=== PATIENT | female | born 1990 | race Two or more races ===

== ENCOUNTER 2022-12-26 20:39 | Emergency (ER) | payer OTHER ==
--- NOTE | 2022-12-26 21:04 | ED Physician Documentation ---
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 She just moved here and developed a lump on her right breast yesterday with moderate pain. No fevers.) PD PAST MEDICAL HISTORY - Present Medications Home Medications: Ambulatory Orders Medication Instructions Recorded Confirmed Doxycycline [Vibramycin] 100 mg PO BID #30 tablet 12/26/22 predniSONE [Deltasone] 20 mg PO [id number] #21 tab 12/26/22 - Allergies Allergies/Adverse Reactions: Allergies Allergy/AdvReac Type Severity Reaction Status Date / Time nitrofurantoin Allergy Itching Verified 12/26/22 20:52 [From Macrobid] PD ED PE NORMAL - Vitals Vital signs reviewed: Yes - General General: Alert and oriented X 3, No acute distress - Derm Derm: Other (Exam done with Joanne MeilleurMobile tech present and chaperoning. There is significant scarring laterally from prior I&D's. 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 Preliminary report of the teleradiologist, there are 2 very small abscesses, one under her prior I&D and another at this current symptomatic area. Case discussed by phone with our on-call surgeon, Dr. Bruno who recommends needle aspiration and antibiotics. This was done and the patient tolerated very well. Departure - Departure Disposition: 01 Home, Self Care Clinical Impression: Breast abscess Condition: Good Record reviewed to determine appropriate education?: Yes Instructions: ED Abscess IandD Prescriptions: predniSONE [Deltasone] 20 mg PO [id number] #21 tab Doxycycline [Vibramycin] 100 mg PO BID #30 tablet Comments: Stay out of the sun while on antibiotics. Follow-up with your PCM as scheduled. Return for new or worsening symptoms. We are performing a wound culture, the results should be done in 48-72 hours. If antibiotic change is necessary we will call you. Return if worse in the meantime, especially if you develop increased pain, fevers, cannot keep down the medication. Otherwise follow-up with your physician in approximately 2-3 days.
[2022-12-26] MEDS ORDERED: ACETAMINOPHEN 500 MG TABLET PO STA (21:27)
[2022-12-26] MEDS ORDERED: BUFFERED LIDOCAINE 10 ML SYRINGE SUBQ STA (22:14)
[2022-12-26] MEDS ORDERED: predniSONE 20 MG TABLET PO STA (22:19)
[2022-12-26] MEDS ORDERED: DOXYCYCLINE 100 MG TABLET PO STA (22:19)
[2022-12-26 22:41] VITALS: BP 120/72
--- NOTE | 2022-12-26 23:36 | Ultrasound Report ---
PROCEDURE: Breast RT Limited INDICATIONS: breast pain, ? abscess TECHNIQUE: Real-time focused sonographic evaluation of the right breast with image documentation. COMPARISON: None. FINDINGS: Ultrasound evaluation in the subareolar area of clinical concern demonstrates an oval circumscribed h ypoechoic collection measuring 1.5 x 1 1 x 0.9 cm with posterior acoustic enhancement. There are hete rogeneous internal echoes as well as eccentric solid components. No internal vascularity on color Dop pler interrogation. In addition, at the 9:00 position in the area of clinical concern, there is an oval predominantly cir cumscribed and hypoechoic collection measuring 1.2 x 0.9 x 1.1 cm with heterogeneous internal echoes including solid-appearing components. No internal vascularity and color Doppler interrogation. There is posterior acoustic enhancement. IMPRESSION: 1. Complex cystic mass or fluid collection with heterogeneous internal solid appearing components dem onstrated in the subareolar region. The differential includes an abscess, complex cyst, or malignancy . Recommend further evaluation with diagnostic mammogram. 2. A second complex cystic mass or fluid collection is also demonstrated at the 9:00 position with a similar differential. Further evaluation is also recommended with diagnostic mammogram. BI-RADS 0: Additional imaging recommended. Reviewed by: Morris Urena MD on 12/26/2022 11:49 PM PDT Approved by: Morris Urena MD on 12/26/2022 11:49 PM PDT Station ID: [id number]
== END 2022-12-26 22:40 | disposition home or self-care (01) ==
LOC: ED 20:39
DX: N61.1 Abscess of the breast and nipple (principal)
CPT/HCPCS: 10060; 76642; 99283; 99284; A9270; J7512

== ENCOUNTER 2023-06-11 12:08 | Emergency (ER) | payer OTHER ==
--- NOTE | 2023-06-11 13:04 | ED Physician Documentation ---
History of Present Illness - Stated complaint Stated Complaint: MIGRAINE,NAUSEA,VERTIGO - Chief complaint Chief Complaint: Neuro - Additonal information Additional information: 32-year-old female presents emergency department for evaluation of headache that began 2 days ago on Saturday. Reports that she was having sex and about to have an orgasm when the sudden pain began on the posterior head and neck and radiated forward. She had some nausea but no vomiting. She does have a history of migraines but this feels entirely different. She took Excedrin without relief of pain. She does take Aimovig injections monthly. Historically states that she has had an MRI that was normal. Review of Systems Constitutional: denies: Fever Eyes: reports: Reviewed and negative Ears: reports: Reviewed and negative Cardiac: reports: Reviewed and negative Respiratory: reports: Reviewed and negative Skin: reports: Reviewed and negative Musculoskeletal: reports: Neck pain Neurologic: reports: Headache. 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: LEEP (Cervical surgery), Other - Present Medications Home Medications: Ambulatory Orders Medication Instructions Recorded Confirmed Levothyroxine Sodium [Unithroid] 75 mcg ORAL DAILY 06/11/23 06/11/23 Liothyronine [Cytomel] 5 mcg PO QDAC 06/11/23 06/11/23 Pnv No.95/Ferrous Fum/Folic AC 1 each PO DAILY 06/11/23 06/11/23 [ Tablet] modafiniL [Modafinil] 100 mg PO DAILY 06/11/23 06/11/23 - Allergies Allergies/Adverse Reactions: Allergies Allergy/AdvReac Type Severity Reaction Status Date / Time nitrofurantoin Allergy Itching Verified 06/11/23 12:21 [From Macrobid] - Social History Does the pt smoke?: No Smoking Status: Never smoker Does the pt drink ETOH?: No Does the pt have substance abuse?: No - Immunizations Immunizations are current?: Yes PD ED PE NORMAL - General General: Alert and oriented X 3, No acute distress - HEENT HEENT: Atraumatic, Moist mucous membranes - Neck Neck: Supple, no meningeal sign - Cardiac Cardiac: RRR, No murmur - Abdomen Abdomen: Normal bowel sounds, Soft - Derm Derm: Warm and dry - Extremities Extremities: No deformity - Neuro Neuro: Alert and oriented X 3, supervisor scrap preparation 2-12 intact, No motor deficit, No sensory deficit, Normal speech, Other (normal finger nose, normal gait) Eye Opening: Spontaneous Motor: Obeys Commands Verbal: Oriented GCS Score: 15 Results - Vitals Vitals: Vital Signs - 24 hr 06/11/23 06/11/23 12:16 13:15 Temperature 37.5 C Heart Rate 75 117 H Respiratory 15 18 Rate Blood Pressure 124/71 113/92 H O2 Saturation 99 98 Oxygen O2 Source Room air - Labs Labs: Laboratory Tests 06/11/23 06/11/23 13:05 13:05 WBC 7.8 RBC 4.76 Hgb 13.4 Hct 42.4 MCV 89.1 MCH 28.2 MCHC 31.6 L RDW 12.6 Plt Count 256 MPV 10.0 Neut # (Auto) 5.2 Lymph # (Auto) 2.1 Nolan # (Auto) 0.4 Eos # (Auto) 0.1 Baso # (Auto) 0.0 Absolute Nucleated RBC 0.00 Nucleated RBC % 0.0 Sodium 135 Potassium 3.7 Chloride 101 Carbon Dioxide 27 Anion Gap 7.0 BUN 12 Creatinine 0.6 Estimated GFR (MDRD) 117 Glucose 107 H Calcium 9.1 Total Bilirubin 0.2 AST 16 ALT 17 Alkaline Phosphatase 108 Total Protein 7.4 Albumin 4.4 Globulin 3.0 Albumin/Globulin Ratio 1.5 Lipase 34 Serum HCG, Qual NEGATIVE - Rads (name of study) angio head/neck CT Relevant Findings:: Final report received (No there is a hemodynamically significant stenosis, vascular occlusion or aneurysmal dilation within the anterior posterior circulation, or neck vasculature) PD Medical Decision Making - ED course Complexity details: reviewed results, re-evaluated patient, d/w patient ED course: 32-year-old female presents emergency department for evaluation of cute onset headache that was suddenly severe and began at the point of orgasm during sexual activity about 48 hours ago. Began in her posterior neck and radiated towards the occiput. She does have a history of migraines but this feels entirely different. She takes Aimovig each month. However Excedrin and Tylenol at home did not resolve the headache. She presents well-appearing though mildly photophobic. Normal neurological and cerebellar exam. Her vital signs were without acute worrisome abnormalities. Given the history I was concerned for the possibility of a subarachnoid hemorrhage. Other etiologies include simple atypical migraine versus neck strain. Low suspicion for mass, tumor I did administer the patient Compazine and Benadryl as well as fluids here in the ER and on reevaluation the headache is better though not resolved. Ultimately CT angiography of the head and neck was completed which showed no findings of aneurysmal dilation dissection or bleeding within the vasculature of the neck, anterior or posterior circulation. I discussed these findings with the patient at this time she is comfortable going home without any obvious acute life-threatening issues found. She is scheduled to follow-up with her neurologist next week. The usual emergent return precautions were otherwise discussed Departure - Departure Disposition: 01 Home, Self Care Clinical Impression: Headache Qualifiers: Headache type: unspecified Headache chronicity pattern: acute headache Intractability: not intractable Qualified Code(s): R51.9 - Headache, unspecified Condition: Stable Record reviewed to determine appropriate education?: Yes Comments: You were seen today in the emergency department because 2 days ago, when you were sexually active and were about to have an orgasm you developed a sudden severe posterior head and neck pain that has not gone away. You do have a history of migraines but this felt entirely different. your labs today in the emergency department were normal. We did do CT angiography of your head and neck which showed no findings of subarachnoid hemorrhage, aneurysm, dissection or other worrisome abnormality within your brain or blood vessels. I would recommend that you try Tylenol and ibuprofen at home. Fluids and rest should make you feel better over the next several days. Continue follow-up with your neurologist next week as scheduled. Return to the ER if you develop any fevers, have sudden severe or different symptoms, vision changes, uncontrolled vomiting, slurred speech, facial droop, sudden weakness in your arms or legs. Forms: PCP List
[2023-06-11 13:10] LABS: BASOPHILS % (AUTO) 0.5 %; EOSINOPHILS # (AUTO) 0.1 10^3/uL (0.0-0.7); EOSINOPHILS % (AUTO) 1.4 %; HCT - HEMATOCRIT 42.4 % (37.0-47.0); HGB - HEMOGLOBIN 13.4 g/dL (12.0-16.0); LYMPHOCYTES # (AUTO) 2.1 10^3/uL (1.5-3.5); LYMPHOCYTES % (AUTO) 26.6 %; MEAN CORPUSCULAR HEMOGLOBIN 28.2 pg (27.0-31.0); MEAN CORPUSCULAR HGB CONC 31.6 g/dL (32.0-36.0); MEAN CORPUSCULAR VOLUME 89.1 fL (81.0-99.0); MONOCYTES # (AUTO) 0.4 10^3/uL (0.0-1.0); MONOCYTES % (AUTO) 4.5 %; NEUTROPHILS # (AUTO) 5.2 10^3/uL (1.5-6.6); NEUTROPHILS % (AUTO) 66.9 %; PLT - PLATELET COUNT 256 10^3/uL (130-450); RED BLOOD COUNT 4.76 10^6/uL (4.20-5.40); RED CELL DISTRIBUTION WIDTH 12.6 % (12.0-15.0); WHITE BLOOD COUNT 7.8 x10^3/uL (4.8-10.8)
[2023-06-11] MEDS: SODIUM CHLORIDE 0.9% 1,000 ML IV STA (13:12)
[2023-06-11] MEDS: diphenhydrAMINE INJ 50 MG/ML VIAL IVP STA (13:12)
[2023-06-11] MEDS: PROCHLORPERAZINE 10 MG/2 ML VIAL IVP STA (13:12)
[2023-06-11 13:25] LABS: ALBUMIN 4.4 g/dL (3.2-5.5); ALBUMIN/GLOBULIN RATIO 1.5 (1.0-2.2); ALKALINE PHOSPHATASE 108 IU/L (42-121); ALT ALANINE AMINOTRANSFERASE 17 IU/L (10-60); AST ASPARTATE AMINOTRANSFERASE 16 IU/L (10-42); BILIRUBIN,TOTAL 0.2 mg/dL (0.2-1.0); BUN - BLOOD UREA NITROGEN 12 mg/dL (6-20); CALCIUM 9.1 mg/dL (8.5-10.3); CARBON DIOXIDE - CO2 27 mmol/L (21-32); CHLORIDE 101 mmol/L (101-111); CREATININE 0.6 mg/dL (0.6-1.3); GFR - MDRD 117 (>89); GLUCOSE 107 mg/dL (74-104); LIPASE 34 U/L (11-82); POTASSIUM 3.7 mmol/L (3.5-4.5); SODIUM 135 mmol/L (135-145); TOTAL PROTEIN 7.4 g/dL (6.4-8.9)
[2023-06-11 13:31] LABS: HCG,QUALITATIVE BLOOD NEGATIVE
[2023-06-11] MEDS: iohexoL-300 100 ML VIAL IVP ONE (13:59)
--- NOTE | 2023-06-11 14:40 | CT Report ---
PROCEDURE: CT Angio Head/Neck INDICATIONS: sudden onset headache with orgasm 2 days ago TECHNIQUE: After the administration of intravenous contrast, 1 mm thick sections acquired from the aortic arch t hrough the [place] of [place]. 3-dimensional ctuhmhx-ahrnocckz-fuwiizeets (MIP) and/or volume renderin g reformats were acquired of the central intracranial vasculature and neck separately. For radiation dose reduction, the following was used: automated exposure control, adjustment of mA and/or kV acco rding to patient size. COMPARISON: None. FINDINGS: Image quality: Diagnostic. HEAD CT: CSF Spaces: Basal cisterns are patent. No extra-axial fluid collections. Ventricles are normal in size and shape. Brain: The brain is within normal limits for age and scanning technique. Skull and face: Calvarium and visualized facial bones appear intact, without suspicious lesions. Sinuses: Visualized sinuses and mastoids are clear. HEAD CT ANGIOGRAPHY: Anterior circulation: Intracranial internal carotid arteries are normal in size and flow. The flow within the paired anterior cerebral arteries is normal and symmetric. The flow within the middle cer ebral arteries is normal and symmetric. The anterior communicating artery is seen. No aneurysms are seen. Posterior circulation: Mild right vertebral artery dominance. Visualized portions of the vertebral a rteries demonstrate normal caliber, and join to form a normal appearing basilar artery. Flow within the posterior cerebral arteries is normal and symmetric. No aneurysms are seen. NECK CT ANGIOGRAPHY: Carotid system: The great vessels demonstrate a conventional anatomy as they arise from the aortic a rch. The origins of the common carotid arteries appear patent. The common carotid arteries demonstr ate normal caliber and courses. The bifurcation regions are both widely patent. The internal caroti d arteries demonstrate normal calibers and courses. Posterior circulation: The origins of the vertebral arteries both appear widely patent. 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 The more superior extra cranial portions of both vertebral arteries also demonstrate normal courses and calibers. They join to form a normal appearing basilar artery. Soft tissues: Visualized neck soft tissues demonstrate no suspicious abnormalities. Bones: No suspicious bony lesions. Visualized cervical spine appears normally aligned. IMPRESSION: No areas of hemodynamically significant stenosis, vascular occlusion or aneurysmal dilation within th e anterior circulation. No areas of hemodynamically significant stenosis, vascular occlusion or aneurysmal dilation within th e posterior circulation. There are no areas of hemodynamically significant stenosis, vascular occlusion or aneurysmal dilation within the neck vasculature. The estimate of stenosis included in the report of the imaging study was calculated using the NASCET method Reviewed by: Jenna Ochoa MD on 06/11/2023 2:38 PM PST Approved by: Jenna Ochoa MD on 06/11/2023 2:38 PM [facility] Station ID: [id number]
[2023-06-11 15:05] VITALS: BP 114/88; O2SAT 99
== END 2023-06-11 15:00 | disposition home or self-care (01) ==
LOC: ED 12:08
DX: R51.9 Headache, unspecified (principal); E03.9 Hypothyroidism, unspecified; Z79.899 Other long term (current) drug therapy
CPT/HCPCS: 36415; 80053; 83690; 84703; 85025; 96374; 99283

== ENCOUNTER 2023-07-12 10:12 | Outpatient (CLI) | payer OTHER ==
[2023-07-12 10:22] LABS: BASOPHILS % (AUTO) 0.4 %; EOSINOPHILS # (AUTO) 0.2 10^3/uL (0.0-0.7); EOSINOPHILS % (AUTO) 2.6 %; HGB - HEMOGLOBIN 11.9 g/dL (12.0-16.0); LYMPHOCYTES # (AUTO) 3.3 10^3/uL (1.5-3.5); LYMPHOCYTES % (AUTO) 35.4 %; MEAN CORPUSCULAR HEMOGLOBIN 28.7 pg (27.0-31.0); MEAN CORPUSCULAR HGB CONC 32.2 g/dL (32.0-36.0); MEAN CORPUSCULAR VOLUME 89.4 fL (81.0-99.0); MEAN PLATELET VOLUME 9.8 fL (7.9-10.8); MONOCYTES # (AUTO) 0.6 10^3/uL (0.0-1.0); MONOCYTES % (AUTO) 6.7 %; NEUTROPHILS % (AUTO) 54.5 %; PLT - PLATELET COUNT 247 10^3/uL (130-450); RED BLOOD COUNT 4.14 10^6/uL (4.20-5.40); RED CELL DISTRIBUTION WIDTH 13.2 % (12.0-15.0); WHITE BLOOD COUNT 9.2 x10^3/uL (4.8-10.8)
[2023-07-12 10:41] LABS: ALBUMIN 4.1 g/dL (3.2-5.5); ALBUMIN/GLOBULIN RATIO 1.4 (1.0-2.2); BILIRUBIN,TOTAL 0.3 mg/dL (0.2-1.0); CALCIUM 9.4 mg/dL (8.5-10.3); CREATININE 0.8 mg/dL (0.6-1.3); POTASSIUM 3.7 mmol/L (3.5-4.5); TOTAL PROTEIN 7.1 g/dL (6.4-8.9)
== END 2023-07-12 10:13 | disposition home or self-care (01) ==
LOC: LAB 10:12
PROVIDERS: ATTEND Obstetrics & Gynecology
DX: Z01.812 Encounter for preprocedural laboratory examination (principal); Z97.5 Presence of (intrauterine) contraceptive device
CPT/HCPCS: 36415; 80053; 85025

== ENCOUNTER 2023-07-18 07:43 | Day surgery (SDC) | payer OTHER ==
[2023-07-18] MEDS ORDERED: LACTATED RINGERS 1,000 ML IV ONE ×2 (08:21→10:28)
[2023-07-18 08:35] LABS: HCG UR QUAL NEGATIVE
--- NOTE | 2023-07-18 09:06 | ANESTHESIA ---
Pre-Anesthesia VS, & Labs - Diagnosis Retained IUD, desires removal - Procedure removal of IUD Vital Signs: Temp Pulse Resp BP Pulse Ox O2 Flow Rate 36.9 C 99 19 132/80 H 100 07/18/23 08:06 07/18/23 08:06 07/18/23 08:06 07/18/23 08:06 07/18/23 08:06 Height: 4 ft 11 in Weight (kg): 76.2 kg Body Mass Index: 33.9 BMI Classification: Obese - NPO >8 hours - Is Patient ?: No - Lab Results Lab results reviewed: Yes Home Medications and Allergies Levothyroxine Sodium [Unithroid] 75 mcg ORAL DAILY 06/11/23 Liothyronine [Cytomel] 5 mcg PO QDAC 06/11/23 Allergies/Adverse Reactions: Allergies Allergy/AdvReac Type Severity Reaction Status Date / Time nitrofurantoin Allergy Itching Verified 07/17/23 12:56 [From Macrobid] Anes History & Medical History - Anesthetic History Anesthesia Complications: reports: No previous complications Family history of Anesthesia Complications: Denies Family history of Malignant Hyperthermia: Denies - Medical History Cardiovascular: reports: None Pulmonary: reports: Sleep apnea, CPAP use (prescribed, does not use), Other Gastrointestinal: reports: GERD, Other Urinary: reports: None Neuro: reports: Migraines Musculoskeletal: reports: Fibromyalgia Endocrine/Autoimmune: reports: HyPOthyroidism, Other Smoking Status: Never smoker History of Cancer?: No - Surgical History Gynecologic: reports: LEEP (Cervical surgery), Other Exam General: Alert, Oriented x3, Cooperative Dental: WNL Mouth Openin Fingerbreadth Neck Mobility: Normal Mallampati classification: II Thyromental Distance: 4-6 cm Respiratory: Lungs clear, Normal breath sounds, No respiratory distress Cardiovascular: Regular rate Neurological: Normal speech Mental/Cognitive Status: Alert/Oriented X3, Normal for patient Plan Anesthesia Type: MAC, Total IV Consent for Procedure(s) Verified and Reviewed: Yes Code Status: Attempt Resuscitation ASA classification: 2-Mild systemic disease Is this case an emergency?: No
[2023-07-18] MEDS ORDERED: fentaNYL 100 MCG/2 ML VIAL ONE (09:12)
[2023-07-18] MEDS ORDERED: PROPOFOL 200 MG/20 ML VIAL IVP ONE (09:12)
[2023-07-18] MEDS ORDERED: MIDAZOLAM 2 MG/2 ML VIAL ONE (09:12)
[2023-07-18] MEDS ORDERED: PROPOFOL 500 MG/50 ML 500 MG/50 ML VIAL ONE (10:00)
[2023-07-18] MEDS ORDERED: SILVER NITRATE APPLICATOR TOP ONE (10:18)
--- NOTE | 2023-07-18 10:46 | OPERATIVE REPORT ---
Operative Report - General Procedure Date: 07/18/23 Planned Procedure: hysteroscopic removal of retained IUD Pre-Op Diagnosis: retained IUD Procedure Performed: Attempted hysteroscopy IUD removal with IUD hook Post Op Diagnosis: retained IUD - Procedure Note Primary Surgeon: Maria Elena Anesthesia Technique: MAC Pathology: none Estimated Blood Loss (mL): 0 Urine Output (mL): 0 Indications: retained IUD Findings: grossly normal cervix IUD removed in entirety on bimanual exam: small, anteverted uterus no adnexal masses or fullness normal vulva, normal vagina Complications: hysteroscope malfunction and hysteroscopic portion of the case was abandoned. - Other Other Information/Narrative: OPERATIVE NOTE Pre-operative diagnosis: 1. Retained IUD 2. seeking Procedure: hyteroscopic removal of retained IUD Post-operative diagnosis: PUSHPA Surgeon: Maria Elena Wallboard Worker: None Anesthesia: MAC Findings: EUA: small uterus, no adnexal masses, normal cervix Speculum: normal vagina, normal cervix Hysteroscope: after trouble shooting several times, could not get hysteroscope to work inside of the uterus Specimen: none Complications: None apparent EBL: minimal Hysteroscopic fluid in: 1100cc Hysteroscopic fluid out: 1100cc UOP: none, pt voided prior to case Dispo: Pt to PACU in stable condition Procedure in detail: After risks benefits and alternatives, as well as indication for procedure and anticipated post-operative recovery course, were discussed with the patient informed consent was obtained and patient was taken to the operating theater where MAC was administered without complication. Pt placed in dorsal lithotomy position, SCDs in place and running, and bimanual exam revealed the aforementioned findings. Villareal speculum placed in posterior vagina, and anterior lip of cervix grasped with ring forces, then switched to tenaculum. Cervix dilated to accomodate 5.5mm hysteroscope. hysteroscope then entered without difficulty. aforementioned findings noted - which was repeated attempts with poor visualization. hysteroscope removed. IUD hook used to remove IUD - which was removed in total. All instruments removed, specimen sent to pathology. All counts correct. Pt awaked from anesthesia. Pt to PACU in stable condition.
[2023-07-18] MEDS ORDERED: SCOPOLAMINE PATCH TOP SCH (11:00)
[2023-07-18] MEDS ORDERED: KETOROLAC 30 MG/ML VIAL ONE ×2 (11:10)
[2023-07-18] MEDS ORDERED: SCOPOLAMINE PATCH TOP ONE (11:10)
[2023-07-18] MEDS ORDERED: DEXAMETHASONE 4 MG/ML VIAL ONE (11:13)
[2023-07-18] MEDS ORDERED: ONDANSETRON 4 MG/2 ML VIAL ONE (11:13)
[2023-07-18 11:15] VITALS: BP 122/73; O2SAT 100
[2023-07-18] MEDS ORDERED: KETOROLAC 30 MG/ML VIAL IVP PRN (11:17)
[2023-07-18] MEDS ORDERED: SODIUM CHLORIDE 0.9% 10 ML VIAL IVP ONE (11:26)
[2023-07-18] MEDS ORDERED: ePHEDrine 50 MG/ML VIAL IVP ONE (11:26)
--- NOTE | 2023-07-18 11:31 | ANESTHESIA POST OP EVALUATION ---
Anesthesia Post Eval - Post Anesthesia Eval Vitals: Last Vital Signs Temp 36.3 C L 07/18/23 11:10 Pulse 71 07/18/23 11:10 Resp 16 07/18/23 11:10 BP 122/73 07/18/23 11:10 Pulse Ox 100 07/18/23 11:10 O2 Flow Rate CV Function Including HR & BP: Stable Pain Control: Satisfactory Nausea & Vomiting: Negative Mental Status: Baseline Respiratory Status: Airway Patent Hydration Status: Satisfactory Anesthesia Complications: None
== END 2023-07-18 07:44 | disposition home or self-care (01) ==
LOC: SDS 07:43
PROVIDERS: ATTEND Obstetrics & Gynecology
DX: T83.39XA Other mechanical complication of intrauterine contraceptive device, initial encounter (principal); N85.4 Malposition of uterus; E66.9 Obesity, unspecified; G47.30 Sleep apnea, unspecified; Z68.33 Body mass index [BMI] 33.0-33.9, adult
CPT/HCPCS: 58301; 81025; J3490; J7120

== ENCOUNTER 2023-07-30 21:18 | Emergency (ER) | payer OTHER ==
[2023-07-30] MEDS ORDERED: DICLOXACILLIN 250 MG CAPSULE PO STA ×2 (23:53)
--- NOTE | 2023-07-30 23:57 | ED Physician Documentation ---
History of Present Illness - Stated complaint Stated Complaint: LUMP ON BREAST - Chief complaint Chief Complaint: General - History obtained from History obtained from: Patient - Additonal information Additional information: The patient comes to the emergency department with chief complaint of right breast lump. The patient has a history of mastitis which has been chronic and recurrent. She has had to have a couple of abscesses drained before. She is concerned because last time she had an abscess, it did not look like much on the outside but when she had ultrasound, there was some fluid that was able to be drained by needle aspiration. The patient is also concerned that if she does not get it drained will get a lot worse. She denies fevers or chills. No redness, swelling, or induration that she is noticed. She states she can feel a little "lump" underneath the skin at the edge of her areola. No other complaints at this time. 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 surgery), Other - Present Medications Home Medications: Ambulatory Orders Medication Instructions Recorded Confirmed Levothyroxine Sodium [Unithroid] 75 mcg ORAL DAILY 06/11/23 07/17/23 Liothyronine [Cytomel] 5 mcg PO QDAC 06/11/23 06/11/23 Dicloxacillin [Dynapen] 500 mg PO Q6H #56 cap 07/30/23 - Allergies Allergies/Adverse Reactions: Allergies Allergy/AdvReac Type Severity Reaction Status Date / Time nitrofurantoin Allergy Itching Verified 07/30/23 21:32 [From Macrobid] - Social History Does the pt smoke?: No Smoking Status: Never smoker Does the pt drink ETOH?: No Does the pt have substance abuse?: No - Immunizations Immunizations are current?: Yes PD ED PE NORMAL - Vitals Vital signs reviewed: Yes - General General: Alert and oriented X 3, No acute distress, Well developed/nourished - HEENT HEENT: Atraumatic, EOMI, Moist mucous membranes - Neck Neck: Supple, no meningeal sign - Respiratory Respiratory: No respiratory distress - Derm Derm: Normal color, Warm and dry, No rash - Extremities Extremities: No deformity - Neuro Neuro: Alert and oriented X 3 - Psych Psych: Normal mood, Normal affect - Free text exam Free text exam: Right breast exam is normal other than on some scarring on the lateral aspect from prior I&D's. The patient has some fibrous tissue in her breast generally and at approximately the 8 o'clock position in the areola, there is a tiny, less than 1 cm lump that is nonfluctuant and mobile. No skin changes overlying, including peau d'orange, erythema, induration, or edema. No nipple discharge or deformity. No axillary lymphadenopathy. Breast appear symmetrical when compared with the left. Results - Vitals Vitals: Oxygen O2 Source Room air - Rads (name of study) Right breast ultrasound Relevant Findings:: Final report received, See rad report (Avascular hypoechoic focus within the right breast 8:00 subareolar region measuring 9 mm previously up to 15 mm. Nonspecific and a tiny abscess cannot be excluded.) PD Medical Decision Making - ED course Complexity details: reviewed results, re-evaluated patient, considered differential, d/w patient ED course: Soft tissue ultrasound was performed of the area and showed a tiny soft tissue mass with no obvious fluid collection within per tech. Radiologist reported the same although with the statement that a tiny abscess could not be excluded. I discussed with the patient that there is no obvious fluid in the tiny lump that she is feeling and if it is too small to even Identifying ultrasound, I am not going to attempt to drain it. I will place patient on antibiotics although it is not even clear that this is infection at all. However, given her history, we will do this to be prudent. The patient is advised to follow-up with her primary doctor as needed. We discussed the usual indications for return. Departure - Departure Disposition: 01 Home, Self Care Clinical Impression: Mastitis Condition: Stable Instructions: ED Breast Infec Prescriptions: Dicloxacillin [Dynapen] 500 mg PO Q6H #56 cap Comments: Your ultrasound shows only a very tiny area of soft tissue swelling without any identifiable fluid inside. It is not clear whether this is infection or not but given your history, we have started you on antibiotics. Prescription for the same is been electronically transmitted to the [facility] pharmacy in [place]. Please pick this up tomorrow and begin taking in the morning as directed. Please follow-up with your primary doctor and home theater installer. Forms: PCP List Discharge Date/Time: 07/31/23 00:53
[2023-07-31] MEDS ORDERED: AMOX/CLAV 875 MG/125 MG TABLET PO STA (00:16)
--- NOTE | 2023-07-31 00:38 | Ultrasound Report ---
PROCEDURE: Breast Limited RT INDICATIONS: recurrent abscess TECHNIQUE: Real-time ultrasound of the right breast area of concern with image documentation. COMPARISON: Right breast ultrasound 12/25/2022 FINDINGS: In the right breast subareolar region at 8:00, there is a complex cystic structure measuring 9 x 5 x 7 mm. On prior exam, this measured 15 x 11 x 9 mm. This lesion is avascular hypoechoic. Tiny abscesse s are not excluded. IMPRESSION: Avascular hypoechoic focus within the right breast at 8:00, subareolar region measuring 9 mm, previou sly up to 15 mm. This is nonspecific and a tiny abscess is not excluded. BI-RADS 0: Recommend return for dedicated mammography and ultrasound. Reviewed by: Conrad Brownlee MD on 07/31/2023 12:37 AM PST Approved by: Conrad Brownlee MD on 07/31/2023 12:37 AM PST Station ID: [id number]
[2023-07-31 00:55] VITALS: BP 117/63; O2SAT 99
== END 2023-07-31 00:53 | disposition home or self-care (01) ==
LOC: ED 21:18
DX: N61.0 Mastitis without abscess (principal); E03.9 Hypothyroidism, unspecified; Z79.899 Other long term (current) drug therapy
CPT/HCPCS: 76642; 99283; 99284; A9270

== ENCOUNTER 2023-09-10 10:42 | Outpatient (CLI) | payer OTHER ==
--- NOTE | 2023-09-11 09:20 | Ultrasound Report ---
LIMITED ULTRASOUND OF RIGHT BREAST: 09/10/2023 Comparison is made to exams dated: 07/31/2023 ultrasound and 12/27/2022 ultrasound - [facility]. Color flow and real-time ultrasound of the right breast 8 o'clock region were performed on the areas of interest. Packer scale images of the real-time examination were reviewed. There is a 0.7 cm x 0.7 cm x 0.7 cm irregular mass in the right breast at 8 o'clock in the retroareol ar region. This irregular mass is hypoechoic with internal echoes and posterior acoustic enhancement . This abnormality is decreased in size. IMPRESSION: PROBABLY BENIGN The 0.7 cm x 0.7 cm x 0.7 cm irregular mass in the right breast may represent a resolving abscess and is probably benign. A follow-up ultrasound in 6 months is recommended to demonstrate resolution. This exam was interpreted at Station ID: [id number]. Electronically Signed By: Lidna Boone M.D. lk/:09/10/2023 11:27:53 Ultrasound BI-RADS: 3 Probably benign BI-RADS CATEGORY: (3) - 3 Ultrasound [id number] 6 month follow-up LATERALITY: (B)
== END 2023-09-10 10:43 | disposition home or self-care (01) ==
LOC: DI 10:42
PROVIDERS: ATTEND Nurse Practitioner Family
DX: N61.1 Abscess of the breast and nipple (principal); N63.13 Unspecified lump in the right breast, lower outer quadrant

== ENCOUNTER 2023-09-20 08:00 | Outpatient (CLI) | payer OTHER ==
[2023-09-20 18:05] LABS: BILIRUBIN,URINE NEGATIVE (NEGATIVE); GLUCOSE, URINE (UA) NEGATIVE (NEGATIVE); KETONES,URINE (UA) NEGATIVE (NEGATIVE); LEUKOCYTE ESTERASE, URINE NEGATIVE (NEGATIVE); NITRITE,URINE NEGATIVE (NEGATIVE); OCCULT BLOOD,URINE NEGATIVE (NEGATIVE); PH,URINE 6.5 PH (5.0-7.5); PROTEIN,URINE NEGATIVE (NEGATIVE); UROBILINOGEN,URINE 0.2 (NORMAL) E.U./dL (NORMAL)
[2023-09-20 18:07] LABS: CLARITY,URINE CLEAR (CLEAR)
[2023-09-20 18:23] LABS: BACTERIA,URINE None Seen /HPF (None Seen); RBC,URINE None Seen /HPF (0-5); SQUAMOUS EPITHELIAL CELL,UR RARE Squamous (<= Few); WBC,URINE 0-3 /HPF (0-5)
== END 2023-09-20 23:59 | disposition home or self-care (01) ==
LOC: LAB.WC 08:00
PROVIDERS: ATTEND Obstetrics & Gynecology
DX: Z34.80 Encounter for supervision of other normal pregnancy, unspecified trimester (principal)
CPT/HCPCS: 81001; 87086

== ENCOUNTER 2023-09-20 12:14 | Outpatient (CLI) | payer OTHER ==
[2023-09-20 12:31] LABS: BASOPHILS % (AUTO) 0.4 %; EOSINOPHILS # (AUTO) 0.2 10^3/uL (0.0-0.7); EOSINOPHILS % (AUTO) 1.7 %; HCT - HEMATOCRIT 39.3 % (37.0-47.0); HGB - HEMOGLOBIN 12.1 g/dL (12.0-16.0); LYMPHOCYTES # (AUTO) 2.7 10^3/uL (1.5-3.5); LYMPHOCYTES % (AUTO) 25.6 %; MEAN CORPUSCULAR HEMOGLOBIN 28.3 pg (27.0-31.0); MEAN CORPUSCULAR HGB CONC 30.8 g/dL (32.0-36.0); MEAN PLATELET VOLUME 9.7 fL (7.9-10.8); MONOCYTES # (AUTO) 0.5 10^3/uL (0.0-1.0); PLT - PLATELET COUNT 252 10^3/uL (130-450); RED BLOOD COUNT 4.27 10^6/uL (4.20-5.40); RED CELL DISTRIBUTION WIDTH 13.9 % (12.0-15.0); WHITE BLOOD COUNT 10.5 x10^3/uL (4.8-10.8)
[2023-09-20 12:58] LABS: THYROID STIMULATING HORMONE 1.21 uIU/mL (0.34-5.60)
[2023-09-21 04:10] LABS: HBsAG SCREEN Negative (Negative); RPR Non Reactive (Non Reactive)
[2023-09-21 12:09] LABS: VARICELLA-ZOSTER AB IGG 2056 index (Immune >165)
[2023-09-22 09:08] LABS: HCV AB Non Reactive (Non Reactive)
[2023-09-22 10:07] LABS: HIV SCREEN 4TH GENERATION Non Reactive (Non Reactive)
== END 2023-09-20 12:15 | disposition home or self-care (01) ==
LOC: LAB 12:14
PROVIDERS: ATTEND Obstetrics & Gynecology
DX: O99.280 Endocrine, nutritional and metabolic diseases complicating pregnancy, unspecified trimester (principal); E06.3 Autoimmune thyroiditis; Z36.89 Encounter for other specified antenatal screening
CPT/HCPCS: 36415; 84439; 84443; 85025; 86592; 86762; 86787; 86803; 86850; 86900; 86901; 87340; 87389

== ENCOUNTER 2023-09-26 09:16 | Outpatient (CLI) | payer OTHER ==
--- NOTE | 2023-09-26 12:29 | Ultrasound Report ---
PROCEDURE: OB 1st Trimester w/TV INDICATIONS: POSITIVE TEST OUTSIDE/PRIOR DATING DATA: Last menstrual period (LMP): 08/06/23. LMP-based estimated date of delivery (AMALIA): 05/12/2024. First dating scan (date and location): 09/26/2023. Estimated date of delivery (AMALIA) from first dating scan: 2323. TECHNIQUE: Real-time scanning was performed of the fetus and maternal pelvic organs, with image documentation. Endovaginal scanning was also performed to better visualize the fetus and maternal ovaries. COMPARISON: None. FINDINGS: Intrauterine gestational sac present. Embryo: [place]-rump length measures 0.4 cm. Estimated gestational age is 6 weeks, 1 day. Heart rate: 119 bpm. Other: Small hematoma at the lower uterine segment/cervical region is seen.. Measurement variability in dating: +/- 4 weeks by LMP, +/- 7 days by mean sac diameter (use before 6 weeks gestation if crown-rump length not able to be measured), +/- 5 days by crown-rump length (6-12 weeks gestation). Maternal organs: Likely resolving right corpus luteum measures 2.49 x 1.56 x 1.69 cm in size is seen. IMPRESSION: 1. Single live intrauterine gestation with fetus and yolk sac seen. Estimated gestational age is 6 we eks, 1 day. heart rate is 119 bpm. 2. Small amount of perigestational hemorrhage at the lower uterine segment/cervical region. 3. Suggestion of resolving corpus luteum within left ovary measures 2.5 x 1.7 x 1.6 cm in size. Reviewed by: Patricio Killian MD on 09/26/2023 12:28 PM PST Approved by: Patircio Killian MD on 09/26/2023 12:28 PM PST Station ID: [id number]
== END 2023-09-26 09:17 | disposition home or self-care (01) ==
LOC: DI 09:16
PROVIDERS: ATTEND Obstetrics & Gynecology
DX: O46.91 Antepartum hemorrhage, unspecified, first trimester (principal); Z3A.01 Less than 8 weeks gestation of pregnancy

== ENCOUNTER 2023-10-14 16:24 | Outpatient (CLI) | payer OTHER ==
[2023-10-14 16:56] LABS: ALBUMIN 4.1 g/dL (3.2-5.5); ALBUMIN/GLOBULIN RATIO 1.4 (1.0-2.2); BILIRUBIN,TOTAL 0.3 mg/dL (0.2-1.0); CALCIUM 9.2 mg/dL (8.5-10.3); CREATININE 0.6 mg/dL (0.6-1.3); POTASSIUM 3.7 mmol/L (3.5-4.5); URIC ACID 4.2 mg/dL (2.3-6.6)
[2023-10-14 17:11] LABS: THYROID STIMULATING HORMONE 0.63 uIU/mL (0.34-5.60)
[2023-10-14 17:21] LABS: BILIRUBIN,URINE NEGATIVE (NEGATIVE); GLUCOSE, URINE (UA) NEGATIVE (NEGATIVE); KETONES,URINE (UA) NEGATIVE (NEGATIVE); LEUKOCYTE ESTERASE, URINE NEGATIVE (NEGATIVE); NITRITE,URINE NEGATIVE (NEGATIVE); OCCULT BLOOD,URINE TRACE-INTA (NEGATIVE); PH,URINE 7.5 PH (5.0-7.5); PROTEIN,URINE NEGATIVE (NEGATIVE); UROBILINOGEN,URINE 0.2 (NORMAL) E.U./dL (NORMAL)
[2023-10-14 17:33] LABS: CLARITY,URINE CLEAR (CLEAR)
[2023-10-14 17:40] LABS: CREATININE,URINE 152.8 mg/dL; PROTEIN/CREATININE RATIO,URINE 0.1 (<=0.2)
[2023-10-14 21:10] LABS: ESTIMATED AVERAGE GLUCOSE 97 mg/dL (70-100)
[2023-10-14 23:27] LABS: CHLAMYDIA TRACHOMATIS DNA NEGATIVE (NEGATIVE); NEISSERIA GONORRHOEAE DNA NEGATIVE (NEGATIVE)
[2023-10-15 02:07] LABS: BACTERIAL VAGINOSIS DNA NEGATIVE (NEGATIVE); CANDIDA GLABRATA DNA NEGATIVE (NEGATIVE); CANDIDA GROUP DNA NEGATIVE (NEGATIVE); CANDIDA KRUSEI DNA NEGATIVE (NEGATIVE); TRICHOMONAS VAGINALIS DNA NEGATIVE (NEGATIVE)
== END 2023-10-14 16:25 | disposition home or self-care (01) ==
LOC: LAB 16:24
PROVIDERS: ATTEND Nurse Practitioner
DX: O20.9 Hemorrhage in early pregnancy, unspecified (principal)
CPT/HCPCS: 36415; 80053; 81001; 81003; 81514; 82570; 83036; 84156; 84443; 84550; 84702; 87086; 87491; 87591; 87661

== ENCOUNTER 2023-10-24 20:05 | Outpatient (CLI) | payer OTHER | END 2023-10-24 20:06 | disposition home or self-care (01) | LOC: LAB 20:05 | PROVIDERS: ATTEND Nurse Practitioner | DX: Z36.8A Encounter for antenatal screening for other genetic defects (principal); E03.9 Hypothyroidism, unspecified | CPT/HCPCS: 36415; 84439; 84443; 84480; 84481 ==

== ENCOUNTER 2023-12-06 14:35 | Outpatient (CLI) | payer OTHER ==
[2023-12-06 18:28] LABS: THYROID STIMULATING HORMONE 0.19 uIU/mL (0.34-5.60)
[2023-12-06 18:42] LABS: BILIRUBIN,URINE NEGATIVE (NEGATIVE); GLUCOSE, URINE (UA) NEGATIVE (NEGATIVE); KETONES,URINE (UA) NEGATIVE (NEGATIVE); LEUKOCYTE ESTERASE, URINE NEGATIVE (NEGATIVE); NITRITE,URINE NEGATIVE (NEGATIVE); OCCULT BLOOD,URINE SMALL (NEGATIVE); PROTEIN,URINE NEGATIVE (NEGATIVE); UROBILINOGEN,URINE 0.2 (NORMAL) E.U./dL (NORMAL)
[2023-12-06 18:58] LABS: CLARITY,URINE HAZY (CLEAR)
[2023-12-06 19:00] LABS: BACTERIA,URINE Rare /HPF (None Seen); CRYSTALS,URINE 11-25 Ca Oxalate /LPF; RBC,URINE 0-5 /HPF (0-5); SQUAMOUS EPITHELIAL CELL,UR FEW Squamous (<= Few); WBC,URINE 0-3 /HPF (0-5)
[2023-12-06 21:08] LABS: BACTERIAL VAGINOSIS DNA NEGATIVE (NEGATIVE); CANDIDA GLABRATA DNA NEGATIVE (NEGATIVE); CANDIDA GROUP DNA NEGATIVE (NEGATIVE); CANDIDA KRUSEI DNA NEGATIVE (NEGATIVE); TRICHOMONAS VAGINALIS DNA NEGATIVE (NEGATIVE)
== END 2023-12-06 14:36 | disposition home or self-care (01) ==
LOC: LAB.N 14:35
PROVIDERS: ATTEND Obstetrics & Gynecology
DX: O99.211 Obesity complicating pregnancy, first trimester (principal); E66.9 Obesity, unspecified; O99.891 Other specified diseases and conditions complicating pregnancy; R10.2 Pelvic and perineal pain; O99.281 Endocrine, nutritional and metabolic diseases complicating pregnancy, first trimester; E03.9 Hypothyroidism, unspecified; Z3A.13 13 weeks gestation of pregnancy
CPT/HCPCS: 36415; 81001; 81003; 81514; 82105; 84439; 84443; 84480; 84481; 87086

== ENCOUNTER 2024-01-02 13:43 | Outpatient (CLI) | payer OTHER ==
--- NOTE | 2024-01-03 08:59 | Ultrasound Report ---
PROCEDURE: OB Anatomy Scan INDICATIONS: OBESITY IN OUTSIDE/PRIOR DATING DATA: Last menstrual period (LMP): 08/06/2023. LMP-based estimated date of delivery (AMALIA): 05/12/2024. First dating scan (date and location): 09/26/2023. Estimated date of delivery (AMALIA) from first dating scan: 05/20/2024. The below data below was generated using the ultrasound AMALIA of 05/20/2024 TECHNIQUE: Real-time scanning was performed of the fetus, with image documentation and biometric measurements. Endovaginal scanning: Not performed. COMPARISON: 09/26/2023 FINDINGS: General: A single living intrauterine gestation is present. Presentation: Vertex Placenta: Placental position is posterior, without previa. Amniotic fluid index: 15.7 cm, within normal limits for gestational age. heart rate: 143 beats per minute. Maternal cervical canal: 3.5 cm long; normal length is 2.5 cm or more. biometrics: Biparietal diameter: 4.8 cm, 20 weeks 4 days, 66% Head circumference: 18.0 cm, 20 weeks 3 days, 54% Abdominal circumference: 16.0 cm, 21 weeks 1 day, 75% Femur length: 3.1 cm, 19 weeks 4 days, 21% Estimated gestational age from initial scan: 20 weeks 1 day Composite gestational age from present scan: 20 weeks 2 days Estimated weight and percentile: 350 g, 59% Measurement variability in biometric dating: +/- 10 days from 12-20 weeks gestation, +/- 2 weeks from 20-30 weeks gestation, +/- 3 weeks at 30 weeks gestation or later. Anatomic survey: Neuro: Ventricles are normal at less than 10 mm. Cisterna magna is normal at 3-11 mm. Cerebellum i s normal in size and morphology. Nuchal skin fold: Normal at less than 6 mm between 14 and 20 weeks gestational age. Face: Nose and lips are normal. Facial profile is not well seen. Spine: No evidence for spina bifida. Heart: 4-chambered heart and ventricular outflow tracts are not well seen. Diaphragm: Diaphragm is intact. Stomach: Left-sided stomach is present. Kidneys: No hydronephrosis. Normal is less than 5 mm in 2nd trimester, less than 7 mm in 3rd trimester. Cord: 3 vessel cord has orthotopic insertion. Bladder: Normal in size. Extremities: All 4 extremities are visualized. IMPRESSION: 1.Single live intrauterine consistent with 20 weeks and 2 days. 2.Facial profile, four-chamber heart and ventricular outflow tracts are not well seen. Recommend shor t-term follow-up ultrasound. 3. anatomic survey is otherwise within normal limits. Reviewed by: Conrad Brownlee MD on 01/03/2024 8:58 AM PDT Approved by: Conrad Brownlee MD on 01/03/2024 8:58 AM PDT Station ID: [id number]
== END 2024-01-02 13:44 | disposition home or self-care (01) ==
LOC: DI 13:43
PROVIDERS: ATTEND Obstetrics & Gynecology
DX: E66.9 Obesity, unspecified (principal); O99.212 Obesity complicating pregnancy, second trimester; Z3A.20 20 weeks gestation of pregnancy

== ENCOUNTER 2024-01-09 15:40 | Outpatient (CLI) | payer OTHER ==
[2024-01-09 15:54] LABS: BASOPHILS % (AUTO) 0.3 %; EOSINOPHILS # (AUTO) 0.2 10^3/uL (0.0-0.7); EOSINOPHILS % (AUTO) 1.3 %; HCT - HEMATOCRIT 36.9 % (37.0-47.0); HGB - HEMOGLOBIN 11.8 g/dL (12.0-16.0); LYMPHOCYTES # (AUTO) 2.1 10^3/uL (1.5-3.5); LYMPHOCYTES % (AUTO) 17.4 %; MEAN CORPUSCULAR HEMOGLOBIN 28.5 pg (27.0-31.0); MEAN CORPUSCULAR VOLUME 89.1 fL (81.0-99.0); MEAN PLATELET VOLUME 10.2 fL (7.9-10.8); MONOCYTES # (AUTO) 0.5 10^3/uL (0.0-1.0); MONOCYTES % (AUTO) 4.3 %; NEUTROPHILS # (AUTO) 9.1 10^3/uL (1.5-6.6); NEUTROPHILS % (AUTO) 75.8 %; PLT - PLATELET COUNT 240 10^3/uL (130-450); RED BLOOD COUNT 4.14 10^6/uL (4.20-5.40); RED CELL DISTRIBUTION WIDTH 14.3 % (12.0-15.0)
[2024-01-09 16:24] LABS: THYROID STIMULATING HORMONE 1.25 uIU/mL (0.34-5.60)
== END 2024-01-09 15:41 | disposition home or self-care (01) ==
LOC: LAB 15:40
PROVIDERS: ATTEND Internal Medicine Endocrinology, Diabetes & Metabolism
DX: E03.9 Hypothyroidism, unspecified (principal); R53.83 Other fatigue
CPT/HCPCS: 36415; 81599; 82306; 82728; 84436; 84439; 84443; 84480; 84481; 85025

== ENCOUNTER 2024-01-21 11:59 | Outpatient (CLI) | payer OTHER ==
--- NOTE | 2024-01-21 15:29 | Ultrasound Report ---
PROCEDURE: OB Follow up INDICATIONS: SUPERVISION OF NORMAL , F/U TO FAS OUTSIDE/PRIOR DATING DATA: Last menstrual period (LMP): 08/16/2023. LMP-based estimated date of delivery (AMALIA): 05/12/2024. First dating scan (date and location): 09/26/2023. Estimated date of delivery (AMALIA) from first dating scan: 05/20/2024. The below data below was generated using the ultrasound AMALIA of 05/20/2024 TECHNIQUE: Real-time scanning was performed of the fetus, with image documentation and biometric measurements. Endovaginal scanning: Not performed. COMPARISON: 01/02/2024 FINDINGS: General: A single living intrauterine gestation is present. Presentation: Cephalic Placenta: Placental position is posterior, without previa. Amniotic fluid index: 19.3 cm, within normal limits for gestational age. heart rate: 169 beats per minute. Maternal cervical canal: 2.6 cm long; normal length is 2.5 cm or more. Estimated gestational age from initial scan: 22 weeks, 6 days Facial profile, four-chamber heart and right and left ventricular outflow tracts are seen and within normal limits. IMPRESSION: 1.Single live intrauterine consistent with 22 weeks and 6 days. 2.Normal appearance of the facial profile and heart. Reviewed by: Conrad Brownlee MD on 01/21/2024 3:27 PM PDT Approved by: Conrad Brownlee MD on 01/21/2024 3:27 PM PDT Station ID: [id number]
== END 2024-01-21 12:00 | disposition home or self-care (01) ==
LOC: DI 11:59
PROVIDERS: ATTEND Obstetrics & Gynecology
DX: Z34.82 Encounter for supervision of other normal pregnancy, second trimester (principal)

== ENCOUNTER 2024-01-31 13:08 | Outpatient (CLI) | payer OTHER ==
[2024-01-31 13:23] VITALS: BP 123/57
[2024-01-31 14:16] LABS: BASOPHILS % (AUTO) 0.3 %; EOSINOPHILS # (AUTO) 0.2 10^3/uL (0.0-0.7); EOSINOPHILS % (AUTO) 1.6 %; HCT - HEMATOCRIT 37.4 % (37.0-47.0); HGB - HEMOGLOBIN 11.9 g/dL (12.0-16.0); LYMPHOCYTES # (AUTO) 2.5 10^3/uL (1.5-3.5); LYMPHOCYTES % (AUTO) 23.8 %; MEAN CORPUSCULAR HEMOGLOBIN 28.9 pg (27.0-31.0); MEAN CORPUSCULAR HGB CONC 31.8 g/dL (32.0-36.0); MEAN CORPUSCULAR VOLUME 90.8 fL (81.0-99.0); MEAN PLATELET VOLUME 10.7 fL (7.9-10.8); MONOCYTES # (AUTO) 0.7 10^3/uL (0.0-1.0); MONOCYTES % (AUTO) 6.8 %; NEUTROPHILS % (AUTO) 66.6 %; PLT - PLATELET COUNT 222 10^3/uL (130-450); RED BLOOD COUNT 4.12 10^6/uL (4.20-5.40); RED CELL DISTRIBUTION WIDTH 15.5 % (12.0-15.0); WHITE BLOOD COUNT 10.6 x10^3/uL (4.8-10.8)
[2024-01-31] MEDS: LACTATED RINGERS 1,000 ML IV SCH (14:16)
[2024-01-31 14:18] LABS: BILIRUBIN,URINE NEGATIVE (NEGATIVE); GLUCOSE, URINE (UA) 100 mg/dL (NEGATIVE); KETONES,URINE (UA) NEGATIVE (NEGATIVE); LEUKOCYTE ESTERASE, URINE NEGATIVE (NEGATIVE); NITRITE,URINE NEGATIVE (NEGATIVE); OCCULT BLOOD,URINE TRACE-LYSE (NEGATIVE); PH,URINE 6.5 PH (5.0-7.5); PROTEIN,URINE NEGATIVE (NEGATIVE); UROBILINOGEN,URINE 0.2 (NORMAL) E.U./dL (NORMAL)
[2024-01-31 14:21] LABS: CLARITY,URINE CLEAR (CLEAR)
[2024-01-31 14:44] LABS: THYROID STIMULATING HORMONE 1.51 uIU/mL (0.34-5.60)
[2024-01-31 14:51] LABS: ALBUMIN 3.7 g/dL (3.2-5.5); ALBUMIN/GLOBULIN RATIO 1.2 (1.0-2.2); BILIRUBIN,TOTAL 0.3 mg/dL (0.2-1.0); CALCIUM 9.6 mg/dL (8.5-10.3); CREATININE 0.5 mg/dL (0.6-1.3); POTASSIUM 3.4 mmol/L (3.5-4.5); TOTAL PROTEIN 6.8 g/dL (6.4-8.9)
[2024-01-31] MEDS: FERRIC GLUCONATE 125 MG in SODIUM CHLORIDE 0.9% 100ML 100 ML IV ONE (15:22)
--- NOTE | 2024-01-31 16:07 | Ultrasound Report ---
PROCEDURE: OB Limited INDICATIONS: labor OUTSIDE/PRIOR DATING DATA: Last menstrual period (LMP): 08/06/2023. LMP-based estimated date of delivery (AMALIA): 05/12/2024. First dating scan (date and location): 09/26/2023. Estimated date of delivery (AMALIA) from first dating scan: 05/20/2024. TECHNIQUE: Real-time scanning was performed of the fetus, with image documentation. COMPARISON: OB ultrasound 01/21/2024 FINDINGS: Limited examination demonstrating cervical length of 4.9 cm and closed. IMPRESSION: 4.9 cm cervical length and closed. Reviewed by: Jenna Ochoa MD on 01/31/2024 4:06 PM PDT Approved by: Jenna Ochoa MD on 01/31/2024 4:06 PM PDT Station ID: [id number]
--- NOTE | 2024-01-31 16:08 | PROVIDER PROGRESS NOTE ---
- HPI Chief Complaint: Labor Current : Current [facility] [place] 05/20/24 Gestation 24 Weeks and 2 Days 3 Para 1 Vital Signs Temperature 98.6 F 01/31/24 13:13 Heart Rate 105 H 01/31/24 13:13 Respiratory Rate 16 01/31/24 13:13 Blood Pressure 123/57 L 01/31/24 13:13 Temperature 98.6 F 01/31/24 13:13 Heart Rate 105 H 01/31/24 13:13 Respiratory Rate 16 01/31/24 13:13 Blood Pressure 123/57 L 01/31/24 13:13 O2 Saturation If not protocol: Oxygen Flow, liters/minute - Procedures OB Procedure Performed: NST Diagnosis/Indication for NST: labor NST Procedure: NST Procedure Start Date 01/31/24 Start Time 13:12 Stop Time 13:46 Vibroacoustic Stimulation Used No Patient States Movement Yes EFM: 150s, moderate variability, no decelerations [place]: no contractions Cat 1/(Too early for NST) Performed and read 01/31/24 Service Date of procedure: 01/31/24 - Plan Plan: 33yo at 24.2w presenting with and daughter with cramping about every twenty minutes. Reports they are bilateral groin pains too. Denies leaking fluid, bleeding. Good movement. Still complaining of fatigue. She says she may not be as hydrated as she was out for January 29 yesterday. Ferritin level was 8 and she has been taking oral iron but still not feeling well. complicated by history of LEEP x1, BMI 36, migraines, ADHD, autism, Brenda's thyroiditis, narcolepsy, iron deficiency. HR 105 BP123/57 T98.6 GEN: NAD CV: Tachycardic Resp: Breathing unlabored Abd: soft, nt Ext: nt 01/21/24 US reviewed and CL 2.6cm (abdominally) Today 01/31/24: CL 4.9cm (transvaginally) and cervix closed CMP, CBC reviewed, benign. TSH 1.51 Ferritin 8 UA with glucose monitoring reassuring, no contractions. 33yo at 24.2w, false labor - US obtained due to cramping, 2.6cm cervical length, and history of LEEP. TV length today is likely more accurate at 4.9cm and is closed. No contractions on monitoring. Reassurance given, reviewed round ligament pains. - 1L LR IVF given. Ferrlicit given today due to persistent symptoms of fatigue and tachycardia, tolerated well. - Hypothyroidism: TSH improved now 1.51. Continue levothyroxine, managed by slasher. - UA, no infection and not sent for culture. Glucose present. GTT ordered, may complete prior to next appointment. - Discharge to home with labor precautions. - Follow up as scheduled 02/06/24.
== END 2024-01-31 16:10 | disposition home or self-care (01) ==
LOC: WFO 13:08 → FBP 13:10 → WFO 16:10
PROVIDERS: ATTEND Obstetrics & Gynecology
DX: O47.02 False labor before 37 completed weeks of gestation, second trimester (principal); Z3A.24 24 weeks gestation of pregnancy; O99.891 Other specified diseases and conditions complicating pregnancy; R00.0 Tachycardia, unspecified; R53.83 Other fatigue; O99.282 Endocrine, nutritional and metabolic diseases complicating pregnancy, second trimester; E03.9 Hypothyroidism, unspecified
CPT/HCPCS: 36415; 76815; 80053; 81003; 82728; 84443; 85025; 96361; 96365; 99214; J2916; J7120; 59025; 81001

== ENCOUNTER 2024-02-19 08:19 | Outpatient (CLI) | payer OTHER | END 2024-02-19 08:20 | disposition home or self-care (01) | LOC: LAB 08:19 | PROVIDERS: ATTEND Obstetrics & Gynecology | DX: Z34.80 Encounter for supervision of other normal pregnancy, unspecified trimester (principal) | CPT/HCPCS: 82951; 82952 ==

== ENCOUNTER 2024-02-19 09:53 | Outpatient (CLI) | payer OTHER | END 2024-02-19 09:54 | disposition home or self-care (01) | LOC: LAB.N 09:53 | PROVIDERS: ATTEND Internal Medicine Endocrinology, Diabetes & Metabolism | DX: E03.9 Hypothyroidism, unspecified (principal) | CPT/HCPCS: 36415; 81599; 84439; 84443; 84480; 84481 ==

== ENCOUNTER 2024-03-05 08:00 | Outpatient (CLI) | payer OTHER ==
[2024-03-05 16:48] LABS: BILIRUBIN,URINE NEGATIVE (NEGATIVE); GLUCOSE, URINE (UA) NEGATIVE (NEGATIVE); KETONES,URINE (UA) NEGATIVE (NEGATIVE); LEUKOCYTE ESTERASE, URINE NEGATIVE (NEGATIVE); NITRITE,URINE NEGATIVE (NEGATIVE); OCCULT BLOOD,URINE TRACE-INTA (NEGATIVE); PH,URINE 6.5 PH (5.0-7.5); PROTEIN,URINE TRACE mg/dL (NEGATIVE); UROBILINOGEN,URINE 0.2 (NORMAL) E.U./dL (NORMAL)
[2024-03-05 17:45] LABS: AMORPHOUS SEDIMENT,UR Moderate /LPF; BACTERIA,URINE None Seen /HPF (None Seen); CLARITY,URINE CLOUDY (CLEAR); RBC,URINE None Seen /HPF (0-5); SQUAMOUS EPITHELIAL CELL,UR NONE SEEN (<= Few); WBC,URINE 0-3 /HPF (0-5)
== END 2024-03-05 23:59 | disposition home or self-care (01) ==
LOC: LAB.WC 08:00
PROVIDERS: ATTEND Nurse Practitioner
DX: R30.0 Dysuria (principal)
CPT/HCPCS: 81001; 87086

== ENCOUNTER 2024-03-16 12:58 | Emergency (ER) | payer OTHER ==
[2024-03-16 13:48] LABS: ALBUMIN 3.4 g/dL (3.2-5.5); ALKALINE PHOSPHATASE 151 IU/L (42-121); ALT ALANINE AMINOTRANSFERASE 36 IU/L (10-60); AST ASPARTATE AMINOTRANSFERASE 17 IU/L (10-42); BILIRUBIN,TOTAL 0.3 mg/dL (0.2-1.0); BUN - BLOOD UREA NITROGEN 10 mg/dL (6-20); CALCIUM 9.2 mg/dL (8.5-10.3); CARBON DIOXIDE - CO2 22 mmol/L (21-32); CHLORIDE 103 mmol/L (101-111); CREATININE 0.5 mg/dL (0.6-1.3); GFR - MDRD 143 (>89); GLUCOSE 119 mg/dL (74-104); LIPASE 30 U/L (11-82); POTASSIUM 3.7 mmol/L (3.5-4.5); SODIUM 133 mmol/L (135-145); TOTAL PROTEIN 6.9 g/dL (6.4-8.9)
[2024-03-16 13:55] LABS: TROPONIN I HIGH SENSITIVITY < 2.3 ng/L (2.3-14.8)
[2024-03-16 14:23] LABS: BASOPHILS % (AUTO) 0.3 %; EOSINOPHILS # (AUTO) 0.1 10^3/uL (0.0-0.7); EOSINOPHILS % (AUTO) 0.5 %; HCT - HEMATOCRIT 37.9 % (37.0-47.0); LYMPHOCYTES # (AUTO) 1.8 10^3/uL (1.5-3.5); MEAN CORPUSCULAR HEMOGLOBIN 27.8 pg (27.0-31.0); MEAN CORPUSCULAR HGB CONC 31.7 g/dL (32.0-36.0); MEAN CORPUSCULAR VOLUME 87.7 fL (81.0-99.0); MEAN PLATELET VOLUME 11.4 fL (7.9-10.8); MONOCYTES # (AUTO) 0.5 10^3/uL (0.0-1.0); MONOCYTES % (AUTO) 5.5 %; NEUTROPHILS % (AUTO) 74.2 %; PLT - PLATELET COUNT 217 10^3/uL (130-450); RED BLOOD COUNT 4.32 10^6/uL (4.20-5.40); RED CELL DISTRIBUTION WIDTH 14.6 % (12.0-15.0); WHITE BLOOD COUNT 9.4 x10^3/uL (4.8-10.8)
[2024-03-16] MEDS: ONDANSETRON ODT 4 MG TABLET TL STA (14:56)
[2024-03-16 15:11] LABS: BILIRUBIN,URINE NEGATIVE (NEGATIVE); GLUCOSE, URINE (UA) NEGATIVE (NEGATIVE); KETONES,URINE (UA) 15 mg/dL (NEGATIVE); LEUKOCYTE ESTERASE, URINE NEGATIVE (NEGATIVE); NITRITE,URINE NEGATIVE (NEGATIVE); OCCULT BLOOD,URINE TRACE-LYSE (NEGATIVE); PH,URINE 6.5 PH (5.0-7.5); PROTEIN,URINE NEGATIVE (NEGATIVE); UROBILINOGEN,URINE 0.2 (NORMAL) E.U./dL (NORMAL)
[2024-03-16 15:16] LABS: CLARITY,URINE CLEAR (CLEAR)
--- NOTE | 2024-03-16 15:40 | ED Physician Documentation ---
History of Present Illness - Stated complaint Stated Complaint: CHEST PX/NAUSEA - Chief complaint Chief Complaint: Cardiac - History obtained from History obtained from: Patient - History of Present Illness Timing: Prior to arrival - Additonal information Additional information: Patient is a 33-year-old female presenting to the emergency department with chest pain nausea symptoms started around 730 this morning when she woke up. 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 Symptoms came on suddenly. She notes she went to go sit down and symptoms did not improve. She called her [employer]PERAT[employer] office and they instructed she come to the emergency department. Patient is approximately 30 weeks . She is being evaluated for possible gestational diabetes but has had no complications during her . She is G3, P1. She notes nausea symptoms persist. She notes some mild midsternal chest pain as well. PD PAST MEDICAL HISTORY - Past Medical History Cardiovascular: None Respiratory: Sleep apnea, CPAP use, Other Neuro: Migraines Endocrine/Autoimmune: HyPOthyroidism, Other GI: GERD, Other : None HEENT: Chronic vision loss Psych: ADD/ADHD Musculoskeletal: Fibromyalgia - Past Surgical History Past Surgical History: No /[employer]: LEEP (Cervical surgery), Other - Present Medications Home Medications: Ambulatory Orders Medication Instructions Recorded Confirmed Levothyroxine Sodium [Unithroid] 75 mcg ORAL DAILY 06/11/23 07/17/23 Liothyronine [Cytomel] 5 mcg PO QDAC 06/11/23 06/11/23 Dicloxacillin [Dynapen] 500 mg PO Q6H #56 cap 07/30/23 - Allergies Allergies/Adverse Reactions: Allergies Allergy/AdvReac Type Severity Reaction Status Date / Time nitrofurantoin Allergy Itching Verified 03/16/24 13:04 [From Macrobid] - Social History Does the pt smoke?: No Smoking Status: Never smoker Does the pt drink ETOH?: No Does the pt have substance abuse?: No - Immunizations Immunizations are current?: Yes PD ED PE NORMAL - Vitals Vital signs reviewed: Yes - General General: Alert and oriented X 3 - HEENT HEENT: Atraumatic - Neck Neck: Supple, no meningeal sign - Cardiac Cardiac: RRR, No murmur, No gallop, No rub - Respiratory Respiratory: No respiratory distress, Clear bilaterally - Abdomen Abdomen: Normal bowel sounds, Other - Back Back: No CVA TTP - Derm Derm: Normal color, No rash - Neuro Neuro: Alert and oriented X 3 - Psych Psych: Normal mood, Normal affect Results - Vitals Vitals: Vital Signs - 24 hr 03/16/24 03/16/24 03/16/24 13:00 14:43 14:53 Temperature 36.4 C L Heart Rate 115 H 110 H Respiratory 20 12 Rate Blood Pressure 119/75 128/71 Blood Pressure 128/71 [Left] O2 Saturation 98 96 03/16/24 16:46 Temperature Heart Rate 97 Respiratory 18 Rate Blood Pressure 107/60 Blood Pressure [Left] O2 Saturation 95 Oxygen O2 Source Room air - EKG (time done) 1308 EKG releavant findings:: EKG personally interpreted by author of this note. Relevant findings are: No ischemic changes Rate: Rate (enter#), [place], Tachy, Other Rhythm: Sinus tachycardia [place]: Normal Intervals: Normal [place] QRS: Normal Ischemia: Other Compare to prior EKG: Old EKG unavailable Computer interpretation: Agree with computer - Labs Labs: Laboratory Tests 03/16/24 03/16/24 03/16/24 13:23 13:23 14:48 WBC 9.4 RBC 4.32 Hgb 12.0 Hct 37.9 MCV 87.7 MCH 27.8 MCHC 31.7 L RDW 14.6 Plt Count 217 MPV 11.4 H Neut # (Auto) 7.0 H Lymph # (Auto) 1.8 [place] # (Auto) 0.5 Eos # (Auto) 0.1 Baso # (Auto) 0.0 Absolute Nucleated RBC 0.00 Nucleated RBC % 0.0 Sodium 133 L Potassium 3.7 Chloride 103 Carbon Dioxide 22 Anion Gap 8.0 BUN 10 Creatinine 0.5 L Estimated GFR (MDRD) 143 Glucose 119 H Calcium 9.2 Total Bilirubin 0.3 AST 17 ALT 36 Alkaline Phosphatase 151 H Troponin I High Sens < 2.3 L Total Protein 6.9 Albumin 3.4 Globulin 3.5 Albumin/Globulin Ratio 1.0 Lipase 30 Urine Color YELLOW Urine Clarity CLEAR Urine pH 6.5 Ur Specific [place] 1.020 Urine Protein NEGATIVE Urine Glucose (UA) NEGATIVE Urine Ketones 15 H Urine Occult Blood TRACE-LYSE Urine Nitrite NEGATIVE Urine Bilirubin NEGATIVE Urine Urobilinogen 0.2 (NORMAL) Ur Leukocyte Esterase NEGATIVE Ur Microscopic Review NOT INDICATED Urine Culture Comments NOT INDICATED PD Medical Decision Making - ED course Complexity details: reviewed old records, reviewed results ED course: Patient is a 33-year-old female presenting to the emergency department with anterior chest pain nausea lightheadedness shortness of breath symptoms that all came on after the this afternoon 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 She is about 30 weeks when symptoms came on suddenly she called her [employer] office and they instructed her to come to the emergency department. Patient's symptoms started around 730 and were persistent on arrival. She denies any lower leg swelling that is worsening no history of coronary artery disease no history of preeclampsia.Patinet denies any abdominal cramping. Blood pressure was stable on arrival in the 120s mild tachycardia to 103 on arrival. Normal active cardiac and lung sounds on auscultation. No significant lower leg swelling or pain edema appreciated. EKG completed on arrival shows sinus tachycardia no other acute findings. Labs obtained here in emergency department showing no significant leukocytosis. CMP shows no significant electrolyte abnormality mildly no elevation in LFTs or bilirubin. Troponin is within normal range. Patient given Pepcid and Zofran here in emergency department and was feeling significantly better. Tachycardia improved here in the emergency department. Discussed case with on-call OPERATORS TE[employer]ER Dr. Stewart Where patient follows up for [employer] discussed results findings and symptoms of patient's with office and heart tones were obtained with heart rates in the 150s labs reviewed with O[employer]ORS TE[employer] and symptoms resolved here in the emergency department. Discussed with OPERATORS TEACHER given reassuring workup patient safe for discharge home and can follow-up with appointment scheduled on this week. Patient feeling significantly better eating and drinking here in the emergency department. Heart rate down trended to the 90s here in emergency department. Discussed with patient evaluation was reassuring here we did not evaluate for possible PE however given symptoms resolving after eating drinking Zofran Pepcid tachycardia resolving no signs of hypoxia unilateral leg swelling low suspicion for any PE. Discussed with patient return with any chest pain pressure shortness of breath unilateral leg swelling dizziness or lightheadedness. Patient is agreeable with this plan. She will follow-up with her [employer]AT[employer] TE[employer] on this week. Departure - Departure Disposition: Home, Self Care Clinical Impression: Reflux esophagitis, Nausea, Atypical chest pain Condition: Good Instructions: ED Chest Pain Atypical Unkn Cause Comments: You were seen here in the emergency department for your chest pain your workup here was reassuring I discussed case with OPERATORS TE[employer]ER and they feel safe having you follow-up with your appointment on . You should return to the emergency department with any worsening pain persistent nausea any shortness of breath associate with your symptoms or any other new or worsening symptoms. Forms: PCP List Discharge Date/Time: 03/16/24 16:46
[2024-03-16 16:53] VITALS: BP 107/60; O2SAT 95
== END 2024-03-16 16:46 | disposition home or self-care (01) ==
LOC: ED 12:58
DX: O99.613 Diseases of the digestive system complicating pregnancy, third trimester (principal); Z3A.30 30 weeks gestation of pregnancy
CPT/HCPCS: 36415; 80053; 81003; 83690; 84484; 85025; 93005; 99284; Q0162; 81001; 87086

== ENCOUNTER 2024-03-19 15:12 | Outpatient (CLI) | payer OTHER ==
[2024-03-19 15:26] LABS: BASOPHILS % (AUTO) 0.1 %; EOSINOPHILS # (AUTO) 0.1 10^3/uL (0.0-0.7); EOSINOPHILS % (AUTO) 0.8 %; HGB - HEMOGLOBIN 11.8 g/dL (12.0-16.0); LYMPHOCYTES # (AUTO) 1.7 10^3/uL (1.5-3.5); MEAN CORPUSCULAR HEMOGLOBIN 27.7 pg (27.0-31.0); MEAN CORPUSCULAR HGB CONC 31.9 g/dL (32.0-36.0); MEAN CORPUSCULAR VOLUME 86.9 fL (81.0-99.0); MEAN PLATELET VOLUME 11.2 fL (7.9-10.8); MONOCYTES # (AUTO) 0.6 10^3/uL (0.0-1.0); MONOCYTES % (AUTO) 6.3 %; NEUTROPHILS # (AUTO) 6.6 10^3/uL (1.5-6.6); NEUTROPHILS % (AUTO) 73.4 %; PLT - PLATELET COUNT 203 10^3/uL (130-450); RED BLOOD COUNT 4.26 10^6/uL (4.20-5.40); RED CELL DISTRIBUTION WIDTH 14.6 % (12.0-15.0)
[2024-03-19 15:57] LABS: THYROID STIMULATING HORMONE 0.07 uIU/mL (0.34-5.60)
== END 2024-03-19 15:13 | disposition home or self-care (01) ==
LOC: LAB 15:12
PROVIDERS: ATTEND Obstetrics & Gynecology
DX: D50.9 Iron deficiency anemia, unspecified (principal); E03.9 Hypothyroidism, unspecified
CPT/HCPCS: 36415; 82728; 84436; 84439; 84443; 84480; 84481; 85025

== ENCOUNTER 2024-04-13 13:44 | Outpatient (CLI) | payer OTHER ==
--- NOTE | 2024-04-13 16:16 | Ultrasound Report ---
PROCEDURE: OB Follow up INDICATIONS: GESTATIONAL DIABETES OUTSIDE/PRIOR DATING DATA: Last menstrual period (LMP): 08/06/2023. LMP-based estimated date of delivery (AMALIA): 05/12/2024. First dating scan (date and location): 09/26/2023. Estimated date of delivery (AMALIA) from first dating scan: 05/20/2024. The below data below was generated using the working AMALIA of 05/20/2024 TECHNIQUE: Real-time scanning was performed of the fetus, with image documentation and biometric measurements. Endovaginal scanning: Not performed. COMPARISON: 01/31/2024, 01/21/2024, 01/02/2024. FINDINGS: General: A single living intrauterine gestation is present. Presentation: Vertex Placenta: Placental position is posterior, without previa. Amniotic fluid index: 16.8 cm, at 66.2% for gestational age. heart rate: 131 beats per minute. Maternal cervical canal: Closed and measures 3.3 cm long; normal length is 2.5 cm or more. biometrics: Biparietal diameter: 8.6 cm, 34 weeks, 5 days, 50% Head circumference: 31.2 cm, 35 weeks, 0 day, 21.6% Abdominal circumference: 33.4 cm, 37 weeks, 2 days, 98.1% Femur length: 6.4 cm, 32 weeks, 6 days, 6.7% Estimated gestational age from initial scan: 34 weeks, 5 days Composite gestational age from present scan: 35 weeks, 0 day Estimated weight and percentile: 2734.2 g, 73.4% Measurement variability in biometric dating: +/- 10 days from 12-20 weeks gestation, +/- 2 weeks from 20-30 weeks gestation, +/- 3 weeks at 30 weeks gestation or more. Other: Not applicable. IMPRESSION: 1. Single live intrauterine gestation with fetus in vertex presentation. heart rate is 1 31 bpm . Normal EMMA at 16.8 cm. Normal growth with estimated weight at 73.4%. Reviewed by: Patricio Killian MD on 04/13/2024 4:15 PM PDT Approved by: Patricio Killian MD on 04/13/2024 4:15 PM PDT Station ID: [id number]
== END 2024-04-13 13:45 | disposition home or self-care (01) ==
LOC: DI 13:44
PROVIDERS: ATTEND Obstetrics & Gynecology
DX: O24.414 Gestational diabetes mellitus in pregnancy, insulin controlled (principal); Z3A.35 35 weeks gestation of pregnancy

== ENCOUNTER 2024-04-16 12:42 | Outpatient (CLI) | payer OTHER ==
[2024-04-16 13:24] LABS: THYROID STIMULATING HORMONE 0.19 uIU/mL (0.34-5.60)
[2024-04-17 15:48] LABS: BACTERIAL VAGINOSIS DNA NEGATIVE (NEGATIVE); CANDIDA GLABRATA DNA NEGATIVE (NEGATIVE); CANDIDA GROUP DNA NEGATIVE (NEGATIVE); CANDIDA KRUSEI DNA NEGATIVE (NEGATIVE); TRICHOMONAS VAGINALIS DNA NEGATIVE (NEGATIVE)
== END 2024-04-16 12:43 | disposition home or self-care (01) ==
LOC: LAB 12:42
PROVIDERS: ATTEND Internal Medicine Endocrinology, Diabetes & Metabolism
DX: E03.9 Hypothyroidism, unspecified (principal); N89.8 Other specified noninflammatory disorders of vagina
CPT/HCPCS: 36415; 81514; 84439; 84443; 84481

== ENCOUNTER 2024-04-23 15:52 | Outpatient (CLI) | payer OTHER | END 2024-04-23 15:53 | disposition home or self-care (01) | LOC: LAB.WC 15:52 | PROVIDERS: ATTEND Obstetrics & Gynecology | DX: Z36.85 Encounter for antenatal screening for Streptococcus B (principal) | CPT/HCPCS: 87797 ==

== ENCOUNTER 2024-05-13 10:00 | Inpatient (IN) ==
[2024-05-13] MEDS ORDERED: NIFEdipine 10 MG CAPSULE PO PRN (11:37)
[2024-05-13] MEDS ORDERED: ONDANSETRON ODT 4 MG TABLET TL PRN (11:37)
[2024-05-13] MEDS ORDERED: LABETALOL 20 MG/4 ML SYRINGE IVP PRN ×2 (11:37)
[2024-05-13] MEDS ORDERED: CARBOPROST TROMETHAMINE 250 MCG/ML AMP IM PRN (11:37)
[2024-05-13] MEDS ORDERED: TRANEXAMIC ACID IN NACL 1,000 MG/100 ML BAG IV PRN (11:37)
[2024-05-13] MEDS ORDERED: fentaNYL 100 MCG/2 ML VIAL IVP PRN (11:37)
[2024-05-13] MEDS ORDERED: hydrALAZINE INJ 20 MG/ML VIAL IVP PRN (11:37)
[2024-05-13] MEDS ORDERED: OXYTOCIN 10 UNIT/ML VIAL IM PRN (11:37)
[2024-05-13] MEDS ORDERED: lidocaine 1% 20 ML MDV ID PRN (11:37)
[2024-05-13] MEDS ORDERED: OXYTOCIN/SODIUM CHLORIDE 500 ML IV PRN (11:37)
[2024-05-13] MEDS ORDERED: TERBUTALINE 1 MG/ML VIAL SUBQ PRN (11:37)
[2024-05-13] MEDS ORDERED: METHYLERGONOVINE 0.2 MG/ML VIAL IM PRN (11:37)
[2024-05-13] MEDS ORDERED: diphenhydrAMINE 25 MG CAPSULE PO PRN (11:37)
[2024-05-13] MEDS ORDERED: miSOPROStoL 200 MCG TABLET PR PRN (11:37)
[2024-05-13] MEDS ORDERED: ACETAMINOPHEN 500 MG TABLET PO PRN (11:37)
[2024-05-13 11:48] LABS: BASOPHILS % (AUTO) 0.2 %; EOSINOPHILS # (AUTO) 0.1 10^3/uL (0.0-0.7); HCT - HEMATOCRIT 35.8 % (37.0-47.0); HGB - HEMOGLOBIN 11.1 g/dL (12.0-16.0); LYMPHOCYTES % (AUTO) 19.2 %; MEAN CORPUSCULAR HEMOGLOBIN 26.2 pg (27.0-31.0); MEAN CORPUSCULAR VOLUME 84.4 fL (81.0-99.0); MEAN PLATELET VOLUME 12.6 fL (7.9-10.8); MONOCYTES # (AUTO) 0.5 10^3/uL (0.0-1.0); MONOCYTES % (AUTO) 5.2 %; NEUTROPHILS # (AUTO) 7.5 10^3/uL (1.5-6.6); NEUTROPHILS % (AUTO) 73.9 %; PLT - PLATELET COUNT 185 10^3/uL (130-450); RED BLOOD COUNT 4.24 10^6/uL (4.20-5.40); RED CELL DISTRIBUTION WIDTH 15.9 % (12.0-15.0); WHITE BLOOD COUNT 10.1 x10^3/uL (4.8-10.8)
[2024-05-13] MEDS ORDERED: miSOPROStoL 100 MCG TABLET VG SCH (12:00)
--- NOTE | 2024-05-13 12:01 | PHARMACY PROGRESS NOTE ---
Best Possible Medication History Admit Date and Time: 05/13/24 [id number] Processed by: Pharmacy Medications reviewed in ED?: No Medication History completed: Yes Patient Interview: Completed Secondary Source(s): Insurance records [facility] Statement: As the person ultimately responsible for medication therapy, providers are able to order a medication from an existing home medication list in [facility] via the "Reconcile Routine" prior to Confirmation of that medication by arch support technician. Such practice is discouraged except when the physician, in their clinical judgment, deems that a medical need exists for a medication without regard to previous use.
[2024-05-13] MEDS: miSOPROStoL 100 MCG TABLET VG SCH (12:15)
[2024-05-13] MEDS: SODIUM CHLORIDE FLUSH 0.9% 10 ML SYRINGE IVP PRN (12:23)
--- NOTE | 2024-05-13 16:46 | ANESTHESIA PROCEDURE NOTE ---
Pre-Anesthesia VS, & Labs Diagnosis Surgical Diagnosis:: induction of labor, DM Procedure Procedure: Labor epidural Vitals Vital Signs: Temp 36.5 C 05/13/24 11:38 NPO NPO: Other Is Patient ?: Yes Lab Results Current Lab Results: Laboratory Tests 05/13/24 14:30: POC Whole Bld Glucose 102 05/13/24 12:12: POC Whole Bld Glucose 129 05/13/24 10:50: WBC 10.1, RBC 4.24, Hgb 11.1 L, Hct 35.8 L, MCV 84.4, MCH 26.2 L , MCHC 31.0 L, RDW 15.9 H, Plt Count 185, MPV 12.6 H, Neut # (Auto) 7.5 H, Lymph # (Auto) 2.0, [place] # (Auto) 0.5, Eos # (Auto) 0.1, Baso # (Auto) 0.0, Absolute Nucleated RBC 0.00, Nucleated RBC % 0.0, Blood Type O POSITIVE, Antibody Screen NEGATIVE 05/13/24 10:50 Meds/Allgy Home Medications Ambulatory Orders Medication Instructions Recorded Confirmed blood sugar diagnostic (True 05/07/24 05/07/24 Metrix Glucose Test Strip) famotidine 20 mg tablet (Pepcid) 20 mg PO QDAY PRN heartburn 05/07/24 05/13/24 insulin aspart U-100 100 unit/mL 4 unit subcut QACDINNER 05/07/24 05/13/24 (3 mL) subcutaneous pen insulin glargine 100 unit/mL (3 24 unit subcut QPM 05/07/24 05/13/24 mL) subcutaneous pen (Lantus Solostar U-100 Insulin) lancets 30 gauge 05/07/24 05/07/24 levothyroxine 100 mcg tablet 100 mcg PO QDAY 05/07/24 05/13/24 (Unithroid) ondansetron HCl 8 mg tablet 8 mg PO QDAY PRN nausea 05/07/24 05/13/24 pen needle, diabetic 32 gauge x 05/07/24 05/07/24 1/4" ursodiol 500 mg tablet 500 mg PO BID #60 tabs 05/11/24 05/13/24 acetaminophen 500 mg tablet 500 mg PO Q6H PRN fever 05/13/24 05/13/24 cyanocobalamin (vitamin B-12) 100 100 mcg PO DAILY 05/13/24 05/13/24 mcg tablet (Vitamin B-12) vitamin D3 125 mcg (5,000 1 cap PO DAILY 05/13/24 05/13/24 unit)-vitamin K2 100 mcg capsule Allergies Allergies Allergy/AdvReac Type Severity Reaction Status Date / Time nitrofurantoin (From Allergy Itching Verified 05/07/24 10:41 Macrobid) [facility] Medical History Medical History (Updated 05/07/24 @ 14:15 by Luana Silveira RN) Narcolepsy (06/04/23) Migraines (06/04/23) History of cervical dysplasia (10/14/23) Brenda's thyroiditis (06/04/23) Fibromyalgia (06/04/23) Attention-deficit hyperactivity disorder, unspecified type (06/04/23) Social History Social History Smoking Status: Never smoker Do you dip or chew tobacco?: No Do you feel safe in your home environment?: Yes Suffered physical, verbal, emotional, or financial abuse?: No Anesthesia Exam (Expanded) Exam General: Alert, Oriented x3 and Cooperative Dental: WNL Mouth Opening: Greater than 4 Fingerbreadths Neck Mobility: Normal Mallampati classification: II Thyromental Distance: 4-6 cm Respiratory: Lungs clear Cardiovascular: Regular rate Exam Exam Vital Signs Temperature 36.5 C 05/13/24 11:38 Plan Plan Anesthesia Type: Epidural Consent for Procedure(s) Verified and Reviewed: Yes Code Status: Attempt Resuscitation ASA Classification ASA classification: 2-Mild systemic disease Is this case an emergency?: No
[2024-05-13 17:23] LABS: BASOPHILS % (AUTO) 0.2 %; EOSINOPHILS # (AUTO) 0.1 10^3/uL (0.0-0.7); EOSINOPHILS % (AUTO) 0.9 %; HCT - HEMATOCRIT 36.9 % (37.0-47.0); HGB - HEMOGLOBIN 11.5 g/dL (12.0-16.0); LYMPHOCYTES # (AUTO) 1.9 10^3/uL (1.5-3.5); LYMPHOCYTES % (AUTO) 19.6 %; MEAN CORPUSCULAR HEMOGLOBIN 26.1 pg (27.0-31.0); MEAN CORPUSCULAR HGB CONC 31.2 g/dL (32.0-36.0); MEAN CORPUSCULAR VOLUME 83.7 fL (81.0-99.0); MEAN PLATELET VOLUME 11.6 fL (7.9-10.8); MONOCYTES # (AUTO) 0.6 10^3/uL (0.0-1.0); MONOCYTES % (AUTO) 5.8 %; NEUTROPHILS % (AUTO) 73.1 %; PLT - PLATELET COUNT 181 10^3/uL (130-450); RED BLOOD COUNT 4.41 10^6/uL (4.20-5.40); RED CELL DISTRIBUTION WIDTH 15.9 % (12.0-15.0); WHITE BLOOD COUNT 9.6 x10^3/uL (4.8-10.8)
[2024-05-13 17:36] LABS: ALBUMIN 3.3 g/dL (3.2-5.5); BILIRUBIN,TOTAL 0.3 mg/dL (0.2-1.0); CALCIUM 9.2 mg/dL (8.5-10.3); CREATININE 0.5 mg/dL (0.6-1.3); POTASSIUM 3.7 mmol/L (3.5-4.5); TOTAL PROTEIN 6.6 g/dL (6.4-8.9)
--- NOTE | 2024-05-13 18:31 | HISTORY & PHYSICAL EXAMINATION ---
Admit History Smoking Status: Never smoker Other Maternal History Other Maternal History: HPI: Patient is a 33-year-old -0-1-1 presenting today for induction of labor secondary to gestational diabetes and intrahepatic cholestasis of .. She has good movement. Denies loss of fluid. No THAKKAR/BV or RUQP. No vaginal bleeding. Denies nausea and vomiting. Denies urinary urgency or dysuria. She does have a skin amount of pruritus. All other symptoms reviewed and were negative except per HPI. Course LMP: 08/06/2023 AMALIA by LMP: 05/12/2024 US:09/26/2023 US age 6+1 AMALIA by US 05/20/24 Final AMALIA: 05/20/2024 FOB: richard Johnchristine Children: Daughter, Reji 2013 - was a bad, traumatic experience for Isabel. and then Reji did not breath for first 3 minutes. sex: daughter Mary Problems: A2 GDM -Discussed insulin versus metformin.Started with metformin after discussing pros and cons. Added insulin. Currently Lantus in the PM and dinner aspart. -NST/EMMA -Diabetic education ordered. High functioning autism Intrahepatic cholestasis of : -mild bile acids 11.9 -on ursodiol Obesity in (baseline labs ordered), encouaged LDASA at 12 weeks. Hashimotos thyroiditis: [employer] Dr. Sosa - on unithroid, reports increased to 112mcg on 02/05 visit, lowered again in third trimester to 100mcg. labs again around 05/07 03/19 ferritin 8.2 but not anemic. IBS -Constipation during . Pre- Weight: 172 BMI: 34.91 Blood type: O+ Rh: + Antibody: Negative CBC: H/H 12.1/39.3 plt 252 RUB:Immune VZV:Immune HBsAg: Neg HepC: NR RPR/AB-EIA: NR HIV: NR [ ] PAP: 05/01/2023-LSIL (at [facility]) History of LEEP 09/21/2022; 10/14/2023: LSIL/HR HPV + (Needs pp colposcopy) GC/CT:Negative HSV: denies Genetic testin10/24/23 MaterniT - Normal; AFP- Covid: No, declines vax Flu:04/02 FAS: WNL Placenta: posterior without previa Cord: 3VC EMMA: WNL EFW: 360g 89%ile 50gm OGCT: 147 TDAP: 02/19 Breast Pump: 02/19 RSV: 04/02 3rd trimester PLT 203 HCT 37.0 HGB 11.8 GBS: pos 04/15: large AC risks discussed DL Biparietal diameter: 8.6 cm, 34 weeks, 5 days, 50% Head circumference: 31.2 cm, 35 weeks, 0 day, 21.6% Abdominal circumference: 33.4 cm, 37 weeks, 2 days, 98.1% Femur length: 6.4 cm, 32 weeks, 6 days EFW: 2734.2 g, 73.4% Delivery plan: 39 week induction, likely misoprostol. Did not like balloon. Contraception:Likely natural family planning, previously Mirena. Considering OCPs, Nexplanon, diaphragm. HPI Current : Vital Signs Temperature 36.5 C 05/13/24 11:38 Temperature 36.5 C 05/13/24 11:38 NST Procedure NST Procedure: NST Procedure Start Time 13:23 Stop Time 13:58 Meds/Allgy Home Medications Ambulatory Orders Medication Instructions Recorded Confirmed blood sugar diagnostic (True 05/07/24 05/07/24 Metrix Glucose Test Strip) famotidine 20 mg tablet (Pepcid) 20 mg PO QDAY PRN heartburn 05/07/24 05/13/24 insulin aspart U-100 100 unit/mL 4 unit subcut QACDINNER 05/07/24 05/13/24 (3 mL) subcutaneous pen insulin glargine 100 unit/mL (3 24 unit subcut QPM 05/07/24 05/13/24 mL) subcutaneous pen (Lantus Solostar U-100 Insulin) lancets 30 gauge 05/07/24 05/07/24 levothyroxine 100 mcg tablet 100 mcg PO QDAY 05/07/24 05/13/24 (Unithroid) ondansetron HCl 8 mg tablet 8 mg PO QDAY PRN nausea 05/07/24 05/13/24 pen needle, diabetic 32 gauge x 05/07/24 05/07/24 1/4" ursodiol 500 mg tablet 500 mg PO BID #60 tabs 05/11/24 05/13/24 acetaminophen 500 mg tablet 500 mg PO Q6H PRN fever 05/13/24 05/13/24 cyanocobalamin (vitamin B-12) 100 100 mcg PO DAILY 05/13/24 05/13/24 mcg tablet (Vitamin B-12) vitamin D3 125 mcg (5,000 1 cap PO DAILY 05/13/24 05/13/24 unit)-vitamin K2 100 mcg capsule Allergies Allergies Allergy/AdvReac Type Severity Reaction Status Date / Time nitrofurantoin (From Allergy Itching Verified 05/07/24 10:41 Macrobid) [facility] Medical History Medical History (Updated 05/13/24 @ 18:41 by Austen Kearney MD) Migraines (06/04/23) History of cervical dysplasia (10/14/23) Fibromyalgia (06/04/23) Attention-deficit hyperactivity disorder, unspecified type (06/04/23) Social History Social History Smoking Status: Never smoker Do you dip or chew tobacco?: No Do you feel safe in your home environment?: Yes Suffered physical, verbal, emotional, or financial abuse?: No POLST POLST Status: Full Code Physical Abdominal Exam Vital Signs: Temp 36.5 C 05/13/24 11:38 Plan for Labor Plan For Labor I expect patient to be DC'd or transferred within 96 hours.: Yes Conclusion/Plan Problem List (1) 39 weeks gestation of : Plan: -Admit to L&D, admit labs, plan for cervical ripening and admit inpatient if successful. -Epidural at patient's request. -Plan for misoprostol for cervical ripening. (2) Gestational diabetes mellitus in , insulin controlled: Plan: -Fasting and postprandial checks. Will change to every 4 hour tests once in active labor -20 units Lantus at night. -Dinner insulin unless normalized -Prandial insulin if elevated. Qualifiers: Trimester: third trimester Qualified Code(s): O24.414 - Gestational diabetes mellitus in , insulin controlled (3) Intrahepatic cholestasis of : Plan: -Ursodiol and Zyrtec for itching. Mild elevation in bile acids. Qualifiers: Trimester: third trimester Qualified Code(s): O26.643 - Intrahepatic cholestasis of , third trimester (4) Supervision of normal intrauterine in multigravida in third trimester: Plan: -As above (5) Brenda's thyroiditis: Plan: -Continue home levothyroxine (6) Autistic disorder: (7) Narcolepsy: Plan: -Caution with sedating medications (8) GBS (group B Streptococcus carrier), +RV culture, currently : Plan: -Ampicillin for GBS sepsis prophylaxis Lab Results 05/13/24 17:18 05/13/24 17:18 Exam Exam Vital Signs Temperature 36.5 C 05/13/24 11:38 Physical exam: General: Alert, oriented, no acute distress Head: Normal cephalic atraumatic Eyes: PERRLA, extraocular motions intact. Respiratory: Normal rate of respiration. No accessory muscle use, normal respiratory effort. Cardiovascular: Regular rate and rhythm Abdomen: Gravid, nontender, nondistended Extremities: Normal range of motion Neuro: Oriented x3. Normal movements Psych: Appropriate mood and affect. Normal judgment and insight SVE: 08/22/-2 FHT: 150 beats per baseline, moderate variability, accelerations present, no decelerations. [place]: Irregular
[2024-05-13] MEDS: INSULIN LISPRO 300 UNIT/3 ML PEN SUBQ SCH (19:02)
[2024-05-13] MEDS: CETIRIZINE 10 MG TABLET PO SCH (19:02)
[2024-05-13 19:38] LABS: CREATININE,URINE 38.3 mg/dL; PROTEIN/CREATININE RATIO,URINE 0.7 (<=0.2)
[2024-05-13] MEDS: ONDANSETRON 4 MG/2 ML VIAL IVP PRN (20:39)
[2024-05-13] MEDS: AMPICILLIN 2 GM in SODIUM CHLORIDE 0.9% MINIBAG 100 ML IV ONE (20:39)
[2024-05-13] MEDS: INSULIN GLARGINE-YFGN 300 UNIT/3 ML PEN SUBQ SCH (21:01)
[2024-05-13] MEDS: TRANEXAMIC ACID IN NACL 1,000 MG/100 ML BAG IV ONE (21:24)
[2024-05-13] MEDS: LEVOTHYROXINE 100 MCG TABLET PO SCH (21:25)
[2024-05-13] MEDS: LACTATED RINGERS 1,000 ML IV PRN (21:50)
[2024-05-13] MEDS ORDERED: LIDOCAINE 2%-EPI 1:100000 20 ML MDV ONE (22:06)
[2024-05-13] MEDS ORDERED: ROPIVACAINE 0.2% 200 MG/100 ML BAG EP ONE (22:06)
[2024-05-13] MEDS: CALCIUM CARBONATE CHEW 500 MG TABLET PO SCH (22:21)
[2024-05-13] MEDS: LACTATED RINGERS 1,000 ML IV SCH (22:30)
[2024-05-13] MEDS ORDERED: METOCLOPRAMIDE 10 MG/2 ML VIAL IVP PRN (22:43)
[2024-05-13] MEDS ORDERED: NALBUPHINE 10 MG/ML AMP IVP PRN (22:43)
[2024-05-13] MEDS ORDERED: NALOXONE 0.4 MG/ML VIAL IVP PRN (22:43)
[2024-05-13] MEDS ORDERED: ePHEDrine 50 MG/ML VIAL IVP PRN (22:43)
[2024-05-13] MEDS ORDERED: diphenhydrAMINE INJ 50 MG/ML VIAL IVP PRN (22:43)
[2024-05-14] MEDS: OXYTOCIN/SODIUM CHLORIDE 500 ML IV SCH (00:10)
[2024-05-14] MEDS: AMPICILLIN 1 GM in SODIUM CHLORIDE 0.9% MINIBAG 100 ML IV SCH (01:04)
[2024-05-14] MEDS: ONDANSETRON 4 MG/2 ML VIAL IVP PRN (02:11)
[2024-05-14] MEDS: ROPIVACAINE 0.2% 200 MG/100 ML BAG EP PRN (04:19)
--- NOTE | 2024-05-14 05:08 | DELIVERY NOTE ---
Delivery Note Labor Labor: positive Augmented by oxytocin Infant Delivery Method Delivery Method: positive Spontaneous vaginal delivery Cervical Ripening Method Cervical Ripening Method: positive Misoprostil Presentation Presentation: positive ULISES - right occiput anterior Nuchal Cord Nuchal Cord: positive None Amniotic Fluid Description Amniotic Fluid Description: positive Clear Laceration Laceration: positive 2nd degree Suture Suture Type: positive Vicryl Suture Size: positive 3-0 Delivery Outcome Delivery Outcome: positive Livebirth [place] : positive Placed in direct skin contact with mother and Stimulated [place] sex: positive Female Cord Cord: positive 3 vessels Placenta Placenta: positive Intact Estimated Blood Loss Estimated Blood Loss (in cc): 400 Post Delivery Events Post Delivery Events: positive Shoulder dystocia Delivery Comments (Free Text/Narrative) Delivery Comments (Free Text/Narrative): Preoperative Diagnoses 39 weeks gestation A2 gestational diabetes managed with insulin Intrahepatic cholestasis of Preeclampsia without severe features Postoperative Diagnoses Same Delivery of live pérez Status post spontaneous vaginal delivery Summary Patient is a 33-year-old -0-1-1 who presented at 39 weeks gestation for induction of labor secondary to gestational diabetes managed with insulin. She did get diagnosed with mild Intermatic cholestasis at term. She received misoprostol for cervical ripening followed by oxytocin for augmentation and then had spontaneous rupture of membranes. During labor, she had an occasional mildly elevated, but not severe blood pressure, however labs were pertinent for a protein to creatinine ratio of 0.7. Other labs were unremarkable. Delivery Summary: Patient was placed in the dorsal lithotomy position. Upon maternal pushing the head was delivered, but a total size noted before delivery of the chin. With delivery of the chin, the fetus made slow descent, and shoulder dystocia was called, it did feel as though the shoulders were in a somewhat transverse position with the right shoulder more elevated. With gentle traction on the head, the fetus did not deliver, so suprapubic pressure was added. The left, posterior, shoulder was noted to have a good amount of space, and with continued gentle downward traction there is slow rotation of the left shoulder anterior until the shoulders delivered easily. The fetus was then delivered to the abdomen which was somewhat large and then the remainder the fetus delivered easily. In total approximate 1 minute 23 seconds from delivery of the head to delivery of the baby. Atraumatically followed by the anterior shoulder, posterior shoulder, then the remainder of the infant's body. A female infant was delivered with APGARS of 8 at 1 minute and 9 at 5 minutes. The infant was placed on its mother's chest . After the cord finished pulsating, the umbilical cord was clamped times two and cut. The placenta delivered intact with three vessel cord. Placenta was not sent to pathology. Thirty units of Pitocin were added to the IV fluid and allowed to run freely. Uterine massage was performed until uterus was deemed firm. Upon inspection of the perineum, second-degree midline laceration was noted and this was repaired with a 3-0 Vicryl in a running fashion. Upon re-inspection the patient was hemostatic. Uterus again massaged and found to be firm. Needle and sponge counts were correct. Patient was stable and allowed to recover in L&D room. Infant was stable and remained in room with mother. weight is pending at this time.
[2024-05-14] MEDS: LACTATED RINGERS 500 ML IV ONE (05:23)
[2024-05-14] MEDS: LEVOTHYROXINE 100 MCG TABLET PO SCH (06:03)
[2024-05-14] MEDS: ACETAMINOPHEN 500 MG TABLET PO PRN ×2 (06:22→17:15)
[2024-05-14] MEDS ORDERED: NIFEdipine 10 MG CAPSULE PO PRN (07:48)
[2024-05-14] MEDS ORDERED: NALOXONE 0.4 MG/ML VIAL IVP PRN (07:48)
[2024-05-14] MEDS ORDERED: hydrALAZINE INJ 20 MG/ML VIAL IVP PRN ×2 (07:48)
[2024-05-14] MEDS ORDERED: OXYTOCIN/SODIUM CHLORIDE 500 ML IV PRN (07:48)
[2024-05-14] MEDS ORDERED: LABETALOL 5 MG/1 ML 20 ML MDV IVP PRN (07:48)
[2024-05-14] MEDS ORDERED: ONDANSETRON 4 MG/2 ML VIAL IVP PRN (07:48)
[2024-05-14] MEDS ORDERED: LABETALOL 20 MG/4 ML SYRINGE IVP PRN ×2 (07:48)
[2024-05-14] MEDS: DOCUSATE SODIUM 100 MG CAPSULE PO SCH (08:28)
[2024-05-14] MEDS: IBUPROFEN 600 MG TABLET PO PRN (08:28)
[2024-05-14] MEDS ORDERED: CALCIUM CARBONATE CHEW 500 MG TABLET PO SCH (09:00)
[2024-05-14] MEDS ORDERED: CETIRIZINE 10 MG TABLET PO SCH (09:00)
[2024-05-14] MEDS: SIMETHICONE CHEW 80 MG TABLET PO PRN (17:15)
[2024-05-15 08:40] VITALS: O2SAT 98
--- NOTE | 2024-05-15 11:25 | Labor Flowsheet ---
Labor Flowsheet Datetime Report Generated by CPN: 05/15/2024 11:25 Datetime: 05/15/2024 08:32 VITAL SIGNS NBP Sys/Sue/Mean (mmHg): 116 : 69 : 79 Pulse: 97 Datetime: 05/14/2024 20:45 SpO2 (%): 99 Datetime: 05/14/2024 06:50 Stage of : Datetime: 05/14/2024 04:30 UTERINE ACTIVITY Monitor Mode: External Frequency (min): 2-4 Quality: Strong Duration (sec): 60-90 Pattern: Normal: <= 5 Contractions in 10 Minutes Resting Tone (Palpate): Relaxed ASSESSMENT A Monitor Mode: Telemetry FHR Baseline Rate : 150 Variability: Moderate 6-25 bpm Accelerations: 15X15 Decelerations: Late Datetime: 05/14/2024 04:16 LaborFlag: Labor Datetime: 05/14/2024 03:46 Pushing Position: Pushing Left Side Datetime: 05/14/2024 03:38 Actions for Decelerations: IV Bolus Datetime: 05/14/2024 03:30 Category: Category II Datetime: 05/14/2024 03:13 STAGE 2 Pushing: Coached on Pushing; Urge to Push Datetime: 05/14/2024 03:05 I/O Interventions: [place] Discontinued Datetime: 05/14/2024 02:50 VAGINAL EXAM Dilatation (cm): 10.0 Effacement (%): 100 Station: 0 Datetime: 05/14/2024 02:30 Comments: pitocin off, position changes for lates Datetime: 05/14/2024 02:23 Patient Position/Activity: Left Lateral Datetime: 05/14/2024 02:22 Hygiene: Emma Care; Underpad Changed Datetime: 05/14/2024 02:19 Monitor Interventions for UA: [place] Adjusted Datetime: 05/14/2024 01:55 MEDICATIONS Pitocin (milliunits): Decreased to @ 0 Datetime: 05/14/2024 01:50 Exam by: Naomi H RN Datetime: 05/14/2024 01:45 Respirations: 14 Datetime: 05/14/2024 01:41 Membranes Rupture Method: Spontaneous Amniotic Fluid Color: Clear Amniotic Fluid Amount: Scant Datetime: 05/14/2024 01:00 Temperature (C): 37.2 Temperature Route: Axillary Pitocin Checklist: At Least 1 Acceleration of 15 bpm x 15 Seconds in 30 Minutes or Adequate Variabi lity; No More than 2 Variable Decelerations > 60 Seconds in Duration and decreasing >60 bpm in 30 min utes; No More than 5 Uterine Contractions in 10 Minutes for any 20 Minute Interval; Uterus Palpates S oft between Contractions (Annotations: see interventions done for late decelerations) Membrane Status: Bulging Datetime: 05/13/2024 23:38 Patient Care Comments: runners w peanut Datetime: 05/13/2024 22:30 FHR Baseline Changes: Tachycardia Datetime: 05/13/2024 22:19 Epidural Procedure: Test Dose Datetime: 05/13/2024 22:09 PROCEDURE TIME OUT Procedure Verify: Correct Patient Identity; Correct Side and Site are Marked; Accurate Procedure Co nsent Form; Agreement on Procedure to be Done; Correct Patient Position; Relevant Images and Results are Properly Labeled and Displayed; Addressed Need to Administer Antibiotics or Fluids for Irrigation ; Safety Precautions Based on Patient History or Medication Use Datetime: 05/13/2024 20:06 Membranes Ruptured Date/Time: 05/14/2024 01:41 Datetime: 05/13/2024 20:00 MATERNAL ASSESSMENT Level of Consciousness: Alert Headache: Denies Nausea/Vomiting: Denies RUQ Epigastric Pain: Denies ANESTHESIA Anesthesia Plans: Epidural TEACHING Instructional Method: Verbal Plan of Care: Plan of Care Discussed Labor/Induction: Labor Stages; Cervical Ripening Pain Management: Epidural Medications: Antibiotics; Cervical Ripening; Pitocin COMMUNICATION Communication: Dr Caio notified of P/C results, no new orders at this time Datetime: 05/13/2024 19:16 Communication Comments: SBAR to RN Hildenbrand Datetime: 05/13/2024 17:48 Monitor Interventions for FHR: Ultrasound Adjusted Datetime: 05/13/2024 17:10 Vital Sign Comments: new order for cbc, cmp, mtp Datetime: 05/13/2024 16:39 Cervical Ripening Agents: Cytotec @ Datetime: 05/13/2024 15:00 Contraction Comments: pt reports feeling "crampy" Datetime: 05/13/2024 14:33 PAIN Pain Scale: 4 Pain Presence: Constant Pain Type: Pressure Pain Location: Perineum Pain Relief Measures: Comfort Measures Pain Coping: Talking Through Contractions Datetime: 05/13/2024 12:13 Bedside Blood Glucose: 129 Datetime: 05/13/2024 11:00 DTR's/Clonus: No Clonus Breath Sounds, Left: Clear and Equal Breath Sounds, Right: Clear and Equal Datetime: 05/13/2024 10:50 PATIENT CARE IV/Blood Work: IV Started; Labs Drawn with IV Start
--- NOTE | 2024-05-15 20:35 | Discharge Summary ---
Discharge Summary Admit Date: 05/13/24 Discharge Date: 05/15/24 Discharging Provider: Toshia Hernandez MD Code Status: Attempt Resuscitation DIAGNOSES Admission Diagnoses: at 39 weeks, cholestasis of , GDM on insulin, constipation, large AC of baby, h/o LEEP, low ferritin, autism. tank's thyroiditis on replacement. Discharge Diagnoses with Status of Each Condition: delivered. shoulder dystocia resolved. preeclampsia without severe features. other issues stable. HPI History of Present Illness: 33 to with at 39 weeks. newly diagnosed with cholestasis. GDM on insulin and pretty stable. other issues stable. admitted for induction. CONSULTS | PROCEDURES Procedures: misoprostol/oxytocin to induce labor. vaginal delivery with epidural anesthesia. HOSPITAL COURSE Hospital Course: Admitted for labor induction at 39 weeks. misoprostol and then oxytocin. epidural for pain relief. elevated bps and labs showed p/c ratio in urine of 0.7. no severe features. progressed to complete and delivered at 0436. shoulder dystocia relieved with suprapubic pressure and some other maneuvers relatively quickly. 2nd degree laceration repaired. baby was 4091 grams. apgars 8/9. Post course was unremarkable and she was discharged home on pp day 1. supplementing baby with some formula. making very little milk but pumping to stimulate. ALLERGIES Allergies Allergy/AdvReac Type Severity Reaction Status Date / Time nitrofurantoin (From Allergy Itching Verified 05/07/24 10:41 Macrobid) MEDICATIONS Ambulatory Orders Medication Instructions Recorded Confirmed lancets 30 gauge 05/07/24 05/07/24 levothyroxine 100 mcg tablet 100 mcg PO QDAY 05/07/24 05/13/24 (Unithroid) ondansetron HCl 8 mg tablet 8 mg PO QDAY PRN nausea 05/07/24 05/13/24 acetaminophen 500 mg tablet 500 mg PO Q6H PRN fever 05/13/24 05/13/24 cyanocobalamin (vitamin B-12) 100 100 mcg PO DAILY 05/13/24 05/13/24 mcg tablet (Vitamin B-12) vitamin D3 125 mcg (5,000 1 cap PO DAILY 05/13/24 05/13/24 unit)-vitamin K2 100 mcg capsule acetaminophen 500 mg tablet 1,000 mg (2 x 500 mg) PO Q8H PRN 05/15/24 (Acetaminophen Extra Strength) Pain #60 tabs docusate sodium 100 mg capsule 100 - 200 mg (1 - 2 x 100 mg) PO 05/15/24 BID PRN Constipation #60 caps ibuprofen 600 mg tablet 600 mg PO Q6H PRN Pain #30 tabs 05/15/24 vit 168-iron 27 mg-folic 1 cap PO DAILY #90 caps 05/15/24 acid 800 mcg-omega3 235 mg capsule (One-A-Day -1) PHYSICAL EXAM AT DISCHARGE General Appearance: positive No acute distress Respiratory: positive No respiratory distress Extremities: positive Pedal edema (mild) LABS 05/13/24 17:18 05/13/24 17:18 FOLLOW UP Follow Up: in clinic 1-2 weeks. TIME SPENT Time Spent in Discharge (Minutes): 30 Discharge Plan Discharge Patient Disposition: Home, Self Care Condition: Good Prescriptions: New Acetaminophen Extra Strength 500 mg tablet 1,000 mg PO Q8H PRN (Reason: Pain) Qty: 60 1RF docusate sodium 100 mg capsule 100 - 200 mg PO BID PRN (Reason: Constipation) Qty: 60 1RF ibuprofen 600 mg tablet 600 mg PO Q6H PRN (Reason: Pain) Qty: 30 0RF One-A-Day -1 27 mg iron- 800 mcg-235 mg capsule 1 cap PO DAILY Qty: 90 3RF Continued acetaminophen 500 mg tablet 500 mg PO Q6H PRN (Reason: fever) vitamin D3-vitamin K2 125 mcg (5,000 unit)-100 mcg capsule 1 cap PO DAILY cyanocobalamin (vitamin B-12) [Vitamin B-12] 100 mcg tablet 100 mcg PO DAILY levothyroxine [Unithroid] 100 mcg tablet 100 mcg PO QDAY ondansetron HCl 8 mg tablet 8 mg PO QDAY PRN (Reason: nausea) Discontinued insulin aspart U-100 100 unit/mL (3 mL) insulin pen 4 unit subcut QACDINNER Lantus Solostar U-100 Insulin 100 unit/mL (3 mL) insulin pen 24 unit subcut QPM (DME) pen needle, diabetic 32 gauge x 1/4" needle See Rx Instructions .ROUTE Rx Instructions: As directed Pepcid 20 mg tablet 20 mg PO QDAY PRN (Reason: heartburn) (DME) True Metrix Glucose Test Strip Strip See Rx Instructions .ROUTE Rx Instructions: As directed ursodiol 500 mg tablet 500 mg PO BID Qty: 60 2RF No Action (DME) lancets 30 gauge misc See Rx Instructions .ROUTE Rx Instructions: As directed Activity Restrictions: pelvic rest 6 weeks. Print Language: [place] Patient Instructions: Preeclampsia Follow-up Care: Toshia Hernandez MD [Provider Admit Priv/Credential] -
== END 2024-05-15 11:24 | disposition home or self-care (01) | DRG 805 ==
LOC: WFO 10:00 → FBP 10:00
PROVIDERS: ADMIT Obstetrics & Gynecology; ATTEND Obstetrics & Gynecology
DX: O14.04 Mild to moderate pre-eclampsia, complicating childbirth; O99.284 Endocrine, nutritional and metabolic diseases complicating childbirth; Z79.899 Other long term (current) drug therapy; O99.344 Other mental disorders complicating childbirth; Z79.890 Hormone replacement therapy; O24.424 Gestational diabetes mellitus in childbirth, insulin controlled; O70.1 Second degree perineal laceration during delivery; Z37.0 Single live birth; O66.0 Obstructed labor due to shoulder dystocia; F84.0 Autistic disorder; Z3A.39 39 weeks gestation of pregnancy; O99.214 Obesity complicating childbirth; O99.354 Diseases of the nervous system complicating childbirth; K83.1 Obstruction of bile duct; O99.824 Streptococcus B carrier state complicating childbirth; O26.643 Intrahepatic cholestasis of pregnancy, third trimester; E06.3 Autoimmune thyroiditis; G47.419 Narcolepsy without cataplexy